=== PATIENT | female | born 1955 | race Caucasian/White ===

== ENCOUNTER 2016-10-03 05:36 | Inpatient (IN) | payer OTHER ==
[2016-09-21 15:24] LABS: % IMMATURE GRANULYOCYTES 0.3 % (0.0-1.1); ABSOLUTE IMMATURE GRANULOCYTES 0.03 10^3/uL (0.00-0.10); ADD DIFF? NO; ADD MORPH? NO; ADD SCAN? NO; ATYPICAL LYMPHOCYTE FLAG 0 (0-99); FRAGMENT RBC FLAG 0 (0-99); HEMATOCRIT 45.2 % (38.0-47.0); HEMOGLOBIN 15.4 g/dL (12.6-16.3); LEFT SHIFT FLG 0 (0-99); LIPEMIA HEMOLYSIS FLAG 90 (0-99); MEAN CELL HEMOGLOBIN 29.3 pg (27.9-34.1); MEAN CELL HEMOGLOBIN CONCENTR. 34.1 g/dL (32.4-36.7); MEAN CELL VOLUME 86.1 fL (81.5-99.8); MEAN PLATELET VOLUME 11.2 fL (8.7-11.7); PLATELET CLUMPS FLAG 0 (0-99); PLATELET COUNT 252 10^3/uL (150-400); RED BLOOD CELL COUNT 5.25 10^6/uL (4.18-5.33); RED CELL DISTRIBUTION WIDTH 12.5 % (11.5-15.2)
--- NOTE | 2016-09-22 08:30 | CPEKG ---
Heart Rate: 68 RR Interval: 882 P-R Interval: 164 QRSD Interval: 90 QT Interval: 428 QTC Interval: 456 P [place]: 38 QRS [place]: 25 T Wave [place]: 39 EKG Severity - NORMAL ECG - EKG Impression: SINUS RHYTHM Electronically Signed By: Zander Campa 22-Sep-2016 09:05:40
[2016-10-03] MEDS ORDERED: LIDOCAINE 1% 2 ML INJ ONE (05:52)
[2016-10-03] MEDS ORDERED: THROMBIN (RECOMBINANT) 5,000 UNIT VIAL TP ONE (06:38)
[2016-10-03] MEDS ORDERED: BUPIVACAINE 0.25% 30 ML SDV ONE (06:39)
[2016-10-03] MEDS ORDERED: BACITRACIN 50,000 UNITS/10 ML SYR IRR ONE (06:39)
[2016-10-03] MEDS ORDERED: BUPIVACAINE/EPI 0.25% 30 ML SDV ONE ×2 (06:39→06:59)
[2016-10-03] MEDS ORDERED: morphINE PF 5 MG/10 ML INJ IT ONE (07:00)
[2016-10-03] MEDS ORDERED: ceFAZolin 2 GM/DEXTROSE 100 ML IV ONE (07:00)
[2016-10-03] MEDS ORDERED: fentaNYL 100 MCG/2 ML INJ IT ONE (07:00)
[2016-10-03] MEDS ORDERED: MIDAZOLAM 2 MG/2 ML VIAL ONE (07:08)
[2016-10-03] MEDS ORDERED: HYDROmorphONE/DILAUDID 2 MG/ML INJ ONE (07:25)
[2016-10-03] MEDS ORDERED: PROPOFOL 200 MG/20 ML VIAL ONE ×2 (07:26→07:53)
[2016-10-03] MEDS ORDERED: KETAMINE 100 MG/10 ML SYR IVP ONE (07:26)
[2016-10-03] MEDS ORDERED: DEXAMETHASONE 4 MG/ML VIAL ONE ×2 (07:29)
[2016-10-03] MEDS ORDERED: ONDANSETRON 4 MG/2 ML VIAL ONE (07:29)
[2016-10-03] MEDS ORDERED: DEXMEDETOMIDINE HCL 400 MCG in NS 100 ML IV SCH (07:30)
[2016-10-03] MEDS ORDERED: GLYCOPYRROLATE 0.2 MG/1 ML VIAL ONE (08:16)
[2016-10-03] MEDS ORDERED: PHENYLEPHRINE HCL 100 MCG/ML SYR ONE (08:19)
[2016-10-03] MEDS ORDERED: morphINE PF 5 MG/10 ML INJ ONE (08:59)
[2016-10-03] MEDS ORDERED: fentaNYL 100 MCG/2 ML INJ ONE (08:59)
[2016-10-03] MEDS ORDERED: SUGAMMADEX SODIUM 200 MG/2 ML VIAL IVP ONE (09:47)
[2016-10-03] MEDS ORDERED: ceFAZolin 1 GM VIAL ONE (10:03)
[2016-10-03] MEDS ORDERED: ALBUTEROL 60 PUFFS/8 GM MDI IH PRN (10:16)
[2016-10-03] MEDS ORDERED: PYRIDOSTIGMINE BROMIDE 60 MG TAB PO PRN (10:16)
[2016-10-03] MEDS ORDERED: ONDANSETRON 4 MG/2 ML VIAL IVP PRN (10:17)
[2016-10-03] MEDS ORDERED: MAGNESIUM HYDROXIDE 30 ML UDCUP PO PRN (10:17)
[2016-10-03] MEDS ORDERED: HYDROmorphONE/DILAUDID 6 MG/30 ML PCA IV PRN (10:17)
[2016-10-03] MEDS ORDERED: NALOXONE HCL 0.4 MG/ML INJ IVP PRN (10:17)
[2016-10-03] MEDS ORDERED: BISACODYL 10 MG SUPP PR PRN (10:17)
[2016-10-03] MEDS ORDERED: ONDANSETRON DISINTEGRATING 4 MG TAB PO PRN (10:17)
[2016-10-03] MEDS ORDERED: LACTULOSE 20 GM/30 ML UDCUP PO PRN (10:17)
[2016-10-03] MEDS ORDERED: METHOCARBAMOL 750 MG TAB PO PRN (10:17)
[2016-10-03] MEDS ORDERED: DIAZEPAM 10 MG/2 ML SYR IVP PRN (10:17)
[2016-10-03] MEDS ORDERED: DIAZEPAM 5 MG TAB PO PRN (10:17)
[2016-10-03] MEDS ORDERED: diphenhydrAMINE 25 MG CAP PO PRN (10:17)
--- NOTE | 2016-10-03 10:22 | POSTOPPROG ---
Post Op Note Date of Operation: 10/03/16 Surgeon: Pepe Martin [employer] Business Agent: Jhonny Anesthesiologist: Deedee Anesthesia: GET(General Endotracheal) Pre-op Diagnosis: L4/5 spondylolisthesis/stenosis Post-op Diagnosis: same Indication: low back pain, left leg pain Procedure: L4/5 TLIF Findings: DJD/stenosis Inf/Abcess present in the surg proc area at time of surgery?: No EBL: 100-500 Complications: 100 ml Drains: Ramos Waggoner
--- NOTE | 2016-10-03 10:24 | SOAPPROG ---
SOAP Progress Note Assessment/Plan: Assessment: 61 yo F sp L4/5 TLIF Plan: stable to step down overnight since patient has Myasthenia Gravis PT/OT x-rays in am lovenox starts tomorrow please call with neuro changes 10/03/16 10:22 Subjective: + back pain, no leg pain. Objective: Laboratory Results 09/21/16 15:17 awake, alert PERRL, no facial droop MATEO x 4 + light touch ICD10 Worksheet Patient Problems: Problems Problem Status Onset Fusion of lumbar spine Acute Pneumonia Acute Sciatica Acute Myasthenia gravis Chronic - ICD10 Problem Qualifiers (1) Fusion of lumbar spine
[2016-10-03] MEDS ORDERED: NS W/ 20 KCl/L 1,000 ML IV SCH (10:30)
[2016-10-03] MEDS ORDERED: ERGOCALCIFEROL 50,000 I.UNIT CAP PO SCH (10:30)
[2016-10-03] MEDS ORDERED: ALBUTEROL 3 ML DEYVIAL ONE (11:05)
--- NOTE | 2016-10-03 11:24 | GOP ---
[f rep st] OPERATIVE REPORT DATE OF OPERATION: 10/03/2016 SURGEON: Pepe Martin MD [employer] TEAMMATE: ANDREW Mark ANESTHESIA: General endotracheal. PREOPERATIVE DIAGNOSIS: Severe L4-5 degenerative disk disease with large left L4-5 facet cyst and s evere neuroforaminal and lateral recess impingement. Intractable back and leg pain. Failed conserv ative care. Morbid obesity. High-risk surgical candidate given age, comorbidities including myasth enia gravis and obesity, and required surgical intervention. POSTOPERATIVE DIAGNOSIS: Severe L4-5 degenerative disk disease with large left L4-5 facet cyst and severe neuroforaminal and lateral recess impingement. Intractable back and leg pain. Failed conser vative care. Morbid obesity. High-risk surgical candidate given age, comorbidities including myast henia gravis and obesity, and required surgical intervention. PROCEDURE PERFORMED: Left-sided L4-5 far lateral transpedicular decompression with L4-5 posterior n onsegmental (pedicle screw and axle device) fixation and posterolateral fusion with local autograft and bone morphogenic protein. L4-5 posterior/transforaminal lumbar interbody fusion with 2 structur al PEEK interbody spacers, local autograft, and bone morphogenic protein. Use of intraoperative patel roscopy, fluoroscopy, and computer volumetric stereotactic navigation with intraoperative neurophysi ologic testing. Injection of intrathecal narcotic analgesics and subcutaneous and intramuscular loc al anesthesia for postoperative pain control. FINDINGS: ESTIMATED BLOOD LOSS: 75 cc. INDICATIONS: The patient is a 61-year-old woman who presents with intractable low back pain and lef t lower extremity radicular symptoms secondary to severe disk degeneration and facet hypertrophy and decompensation, with a large left L4-5 facet cyst causing severe central canal and neural foraminal and lateral recess impingement. She has failed extensive conservative care and presents now for eli rgical intervention. She understands the high risk of complications given her obesity and myastheni a gravis, especially respiratory depression. I have discussed this at length with Dr. Bruce Pak t he head of the anesthesia department here, and the patient's neurologist, and they have put a plan i n place preoperatively. DESCRIPTION OF PROCEDURE: After informed consent was obtained, patient was taken to the operating r oom and placed in prone position on the Ramos table. The lumbosacral area was prepped and draped in a sterile fashion after fluoroscopic localization of the correct level. The subcutaneous and int ramuscular tissues were infiltrated with local anesthesia. A midline linear incision was then creat ed over the L4-5 spinous processes. This was carried down to the fascial layer, which was incised u sing monopolar electrocautery and carried in the subfascial plane along the spinous process and lami na bilaterally. Note that the exposure took approximately 2-3 times as long as normal given the pat ient's obesity and the depth of the wound. There was also increased blood loss. The large 80 mm re tractors were placed and after careful dissection bipolar fluoroscopy was utilized to verify the cor rect level. Following this, a left-sided L4-5 far lateral transpedicular decompression was performe d. Note that there was an extreme amount of facet hypertrophy and degeneration, and this part of th e procedure also took much longer than normal as well. There was also a large facet cyst. It was e xtremely adherent to the dura, which required meticulous dissection under high-power microscopy to r emove it. I was able to thoroughly decompress both the L4 and L5 nerve roots and expose the disk. The [employer] neuronavigational system was then brought in, and using computer volumetric stereotactic navigation, pedicle screws were placed at L4 and L5 bilaterally. Each individual screw was tested neurophysiologically with monopolar electrostimulation and interpretation of the potentials by the renetta lawson. They were also inspected under high-power microscopy and the L5 pedicle cracked upon placin g the screw. I felt that it was in the patient's best interest to leave it in place because it was still relatively solid, but also to place an axial device for further fixation, especially given her obesity and the stress that caused on these screws and the system as a whole. A small amount of di straction was then created across the interspace and a complete diskectomy was performed under high- power microscopy, along with preparation of the endplates and placement of two 10 mm structural PEEK interbody spacers, local autograft, and bone morphogenic protein for an L4-5 posterior/transforamin al lumbar interbody fusion. The screw and jm system were then placed in a slight amount of sunny mely in order to facilitate bony union and to minimize the potential for posterior graft migration. Following this, the remaining facet joint and lamina on the right were extensively decorticated, an d the residual local autograft along with bone morphogenic protein was placed out laterally for post erolateral fusion at the L4-5 level. 200 mcg of Duramorph, along with 50 mcg of fentanyl were injec cody intrathecally for postoperative pain control. The subcutaneous and intramuscular tissues were r e-infiltrated with local anesthesia. A drain was placed and the wound was closed in a layered fashi on using interrupted Vicryl sutures followed by Steri-Strips on the skin. COMPLICATIONS: None. DISPOSITION: The patient is currently in the process of being repositioned for extubation. /[id number]/MODL
--- NOTE | 2016-10-03 13:39 | GCON ---
[f rep st] CONSULTATION DIRECTOR OF SPEECH PATHOLOGY CONSULTATION REASON FOR ADMISSION: Status post back surgery. The patient is a very pleasant 61-year-old white female, well-known to myself, with a past medical h istory of myasthenia gravis as well as asthma. She is examined postoperatively, after receiving a L 4-L5 TLIF. Again, she has a long-standing history of myasthenia gravis, and has had no problems wit h this recently. Her asthma has been well controlled on Dulera. Currently, she is resting comforta klaus. The pain is well tolerated. She denies any breathlessness. There is no cough or production o f sputum. No fever, no night sweats. PAST MEDICAL HISTORY: Again, significant for asthma, myasthenia gravis, chronic back pain, obesity. PAST SURGICAL HISTORY: She has had a tonsillectomy, knee surgery, and hysterectomy. ALLERGIES: Acetaminophen. SOCIAL HISTORY: Lifelong never smoker. No significant alcohol use. She has a significant other, h as good family support. PHYSICAL EXAMINATION: VITAL SIGNS: Blood pressure is 119/59, pulse is 69, respirations are 12, tem perature 36.7, oxygen saturation 93% on 10 L. GENERAL: She is a mildly overweight, but very pleasa nt 61-year-old white female who is resting comfortably in no acute distress. HEENT: Eyes are DANETTE, EOMI. Throat shows no erythema or tonsillar hypertrophy. NECK: Supple. No cervical adenopathy. HEART: Regular rate and rhythm with a 2/6 systolic murmur at the left sternal border without radia tion. LUNGS: Diminished breath sounds, but no wheeze. ABDOMEN: Soft, nontender. Bowel sounds ar e present in all 4 quadrants. EXTREMITIES: No clubbing, cyanosis or edema. LABORATORY DATA: White count 9.7, hemoglobin 15, hematocrit 45, platelet count 252. IMPRESSION: 1. Status post L4-5 transforaminal lumbar interbody fusion. 2. Myasthenia gravis, stable. 3. Asthma, stable. 4. Obesity. RECOMMENDATIONS: 1. Agree with current pain management. 2. DVT and PE prophylaxis. 3. Stress ulcer prophylaxis. 4. Will restart patient's home Dulera. 5. Anticipate discharge home soon. Thank you very much. /[id number]/MODL
[2016-10-03] MEDS: BUDESONIDE/FORMOTEROL 80/4.5 60 PUFFS/MDI IH SCH ×2 (14:29→20:31)
[2016-10-03] MEDS: POLYETHYLENE GLYCOL 3350 17 GM PKT PO SCH ×2 (17:32→20:29)
[2016-10-03] MEDS: GABAPENTIN 300 MG CAP PO SCH ×2 (17:32→20:28)
[2016-10-03] MEDS: HYDROmorphONE/DILAUDID 1 MG/ML SYR IVP PRN (19:10)
[2016-10-03] MEDS: morphINE SR 15 MG TAB PO SCH (20:28)
[2016-10-03] MEDS: SENNOSIDES/DOCUSATE SODIUM TAB PO SCH (20:29)
[2016-10-03] MEDS: FAMOTIDINE 20 MG/NACL 50 ML IV SCH (20:29)
[2016-10-04 05:04] LABS: % IMMATURE GRANULYOCYTES 0.3 % (0.0-1.1); ABSOLUTE IMMATURE GRANULOCYTES 0.03 10^3/uL (0.00-0.10); ADD DIFF? NO; ADD MORPH? NO; ADD SCAN? NO; ATYPICAL LYMPHOCYTE FLAG 0 (0-99); FRAGMENT RBC FLAG 0 (0-99); HEMATOCRIT 40.2 % (38.0-47.0); HEMOGLOBIN 13.5 g/dL (12.6-16.3); LEFT SHIFT FLG 0 (0-99); LIPEMIA HEMOLYSIS FLAG 80 (0-99); MEAN CELL HEMOGLOBIN 29.4 pg (27.9-34.1); MEAN CELL HEMOGLOBIN CONCENTR. 33.6 g/dL (32.4-36.7); MEAN CELL VOLUME 87.6 fL (81.5-99.8); MEAN PLATELET VOLUME 11.4 fL (8.7-11.7); PLATELET CLUMPS FLAG 10 (0-99); PLATELET COUNT 223 10^3/uL (150-400); RED BLOOD CELL COUNT 4.59 10^6/uL (4.18-5.33); RED CELL DISTRIBUTION WIDTH 12.7 % (11.5-15.2)
[2016-10-04] MEDS: oxyCODONE IR 5 MG TAB PO PRN ×3 (05:05→16:41)
[2016-10-04 05:37] LABS: ANION GAP 9 mEq/L (8-16); CALCIUM 9.5 mg/dL (8.5-10.4); CARBON DIOXIDE 25 mEq/l (22-31); CHLORIDE 104 mEq/L (97-110); CREATININE 0.7 mg/dL (0.6-1.0); GLOMERULAR FILTRATION RATE > 60; GLUCOSE 138 mg/dL (70-100); POTASSIUM 4.7 mEq/L (3.5-5.2); SODIUM 138 mEq/L (134-144)
--- NOTE | 2016-10-04 07:20 | SOAPPROG ---
SOAP Progress Note Assessment/Plan: Assessment: 61 yo female with myesthenia gravis, POD #1 s/p L4/5 TLIF notes left leg pain to be improved pain well controlled Plan: DC dai LSO when out of bed once it arrives AP/Lat xrays Lspine today to evaluate hardware PT/OT Transfer to floor 10/04/16 07:17 Subjective: lying in bed, comfortable. She reports resolution of the "shooting pain" down her left leg Denies new numbness, tingling or weakness Objective: Vital Signs Temp Pulse Resp BP Pulse Ox 37.1 C 70 10 L 116/59 L 95 10/04/16 04:00 10/04/16 04:00 10/04/16 04:00 10/04/16 04:00 10/04/16 04:00 Laboratory Results 10/04/16 04:54 10/04/16 04:54 10/03/16 10/04/16 10/05/16 05:59 05:59 05:59 Intake Total 0 Output Total 430 Balance 1620 Dressing: CDI KIM: 30 ml Neuro: KELLY to command sens +LT 5/5 DF/PF/EHL ICD10 Worksheet Patient Problems: Problems Problem Status Onset Fusion of lumbar spine Acute Pneumonia Acute Sciatica Acute Myasthenia gravis Chronic
[2016-10-04] MEDS: ENOXAPARIN 40 MG/0.4 ML SYR SC SCH (08:04)
[2016-10-04] MEDS: SENNOSIDES/DOCUSATE SODIUM TAB PO SCH ×2 (08:04→21:00)
[2016-10-04] MEDS: FAMOTIDINE 20 MG/NACL 50 ML IV SCH (08:04)
[2016-10-04] MEDS: PYRIDOSTIGMINE BROMIDE 60 MG TAB PO PRN ×2 (08:04→12:27)
[2016-10-04] MEDS: POLYETHYLENE GLYCOL 3350 17 GM PKT PO SCH ×3 (08:04→21:05)
[2016-10-04] MEDS: SERTRALINE HCL 100 MG TAB PO SCH (08:05)
[2016-10-04] MEDS: GABAPENTIN 300 MG CAP PO SCH ×3 (08:05→21:01)
[2016-10-04] MEDS: PANTOPRAZOLE SODIUM 40 MG TAB PO SCH (08:05)
[2016-10-04] MEDS: azaTHIOprine 50 MG TAB PO SCH (08:05)
[2016-10-04] MEDS: morphINE SR 15 MG TAB PO SCH ×2 (08:05→21:01)
[2016-10-04] MEDS ORDERED: FORMOTEROL IH SCH ×2 (09:00)
[2016-10-04] MEDS ORDERED: MOMETASONE IH SCH ×2 (09:00)
[2016-10-04] MEDS: BUDESONIDE/FORMOTEROL 80/4.5 60 PUFFS/MDI IH SCH ×2 (09:40→20:28)
[2016-10-04] MEDS: HYDROmorphONE/DILAUDID 1 MG/ML SYR IVP PRN (16:41)
--- NOTE | 2016-10-05 07:30 | SOAPPROG ---
SOAP Progress Note Assessment/Plan: Assessment: 61 yo female with myesthenia gravis, POD #2 s/p L4/5 TLIF notes left leg pain to be improved pain well controlled Plan: LSO when out of bed once it arrives AP/Lat xrays Lspine today to evaluate hardware PT/OT DC planning Patient was seen by Dr. Martin this AM Subjective: awake, alert, pain well controlled Objective: Vital Signs Temp Pulse Resp BP Pulse Ox 37.3 C 87 16 135/73 H 90 L 10/05/16 01:14 10/05/16 01:14 10/05/16 01:14 10/05/16 01:14 10/05/16 01:14 Laboratory Results 10/04/16 04:54 10/04/16 04:54 10/04/16 10/05/16 10/06/16 05:59 05:59 05:59 Intake Total 2050 1230 Output Total 430 35 Balance 1620 1195 Lumbar xrays: Stable hardware L4/5 Neuro: KELLY, Sens +LT KIM: 35 ml ICD10 Worksheet Patient Problems: Problems Problem Status Onset Fusion of lumbar spine Acute Pneumonia Acute Sciatica Acute Myasthenia gravis Chronic
[2016-10-05] MEDS: HYDROmorphONE/DILAUDID 1 MG/ML SYR IVP PRN (08:29)
[2016-10-05] MEDS: BUDESONIDE/FORMOTEROL 80/4.5 60 PUFFS/MDI IH SCH ×2 (09:37→22:08)
[2016-10-05] MEDS: azaTHIOprine 50 MG TAB PO SCH (10:49)
[2016-10-05] MEDS: SERTRALINE HCL 100 MG TAB PO SCH (10:49)
[2016-10-05] MEDS: ENOXAPARIN 40 MG/0.4 ML SYR SC SCH (10:49)
[2016-10-05] MEDS: morphINE SR 15 MG TAB PO SCH ×2 (10:49→22:09)
[2016-10-05] MEDS: SENNOSIDES/DOCUSATE SODIUM TAB PO SCH ×2 (10:50→22:09)
[2016-10-05] MEDS: PANTOPRAZOLE SODIUM 40 MG TAB PO SCH (10:50)
[2016-10-05] MEDS: POLYETHYLENE GLYCOL 3350 17 GM PKT PO SCH ×3 (10:50→22:09)
[2016-10-05] MEDS: GABAPENTIN 300 MG CAP PO SCH ×3 (10:50→22:09)
[2016-10-05] MEDS ORDERED: NS 1,000 ML IV ONE (11:22)
--- NOTE | 2016-10-05 11:50 | CPEKG ---
Heart Rate: 165 RR Interval: 364 QRSD Interval: 78 QT Interval: 280 QTC Interval: 464 QRS [place]: 28 T Wave [place]: 7 EKG Severity - ABNORMAL ECG - EKG Impression: ATRIAL FIBRILLATION WITH RAPID V-RATE EKG Impression: ATRIAL FIBRILLATION IS NEW IN COMPARISON TO PRIOR ECG Electronically Signed By: Zander Campa 05-Oct-2016 12:08:28
[2016-10-05 12:15] LABS: ANION GAP 8 mEq/L (8-16); CARBON DIOXIDE 28 mEq/l (22-31); CHLORIDE 102 mEq/L (97-110); CREATININE 0.7 mg/dL (0.6-1.0); GLOMERULAR FILTRATION RATE > 60; GLUCOSE 192 mg/dL (70-100); POTASSIUM 4.7 mEq/L (3.5-5.2); SODIUM 138 mEq/L (134-144)
[2016-10-05 12:24] LABS: HEMATOCRIT 40.1 % (38.0-47.0); HEMOGLOBIN 13.3 g/dL (12.6-16.3); MEAN CELL HEMOGLOBIN CONCENTR. 33.2 g/dL (32.4-36.7); MEAN CELL VOLUME 87.4 fL (81.5-99.8); RED BLOOD CELL COUNT 4.59 10^6/uL (4.18-5.33); RED CELL DISTRIBUTION WIDTH 12.7 % (11.5-15.2)
[2016-10-05] MEDS ORDERED: DILTIAZEM 125 MG in D5W 125 ML IV SCH (12:30)
[2016-10-05] MEDS ORDERED: IOPAMIDOL (ISOVUE 370) 100 ML BTL IV ONE ×2 (14:48→17:12)
[2016-10-05] MEDS ORDERED: ALTEPLASE 2 MG VIAL IVP PRN (15:50)
[2016-10-05] MEDS: oxyCODONE IR 5 MG TAB PO PRN (16:32)
--- NOTE | 2016-10-05 17:27 | GCON ---
[f rep st] CONSULTATION REFERRING PHYSICIAN: Dr. Martin CONSULTING QUESTION: Tachycardia. HISTORY OF PRESENT ILLNESS: A 61-year-old female with a history of myasthenia gravis and asthma, wh o presents on 10/03/2016 for elective L4-5 decompression. The patient is postoperative day 2. [facility] Medicine was consulted as the patient developed new tachycardia with heart rates in the 150s to 160s. The patient has an uncomplicated first 24 hours of her postoperative care. Bedside, she is not complaining of chest pain or discernible shortness of breath. She can feel the palpitations and does not report having felt these previously. Denies any pleuritic chest pain. Reports that her o ral intake has been less than usual, but her symptoms of myasthenia are stable compared to her outpa tient presentation. The patient denies any nausea, vomiting. Does report poorly controlled pain. Denies any new lower extremity edema or new numbness or tingling. PAST MEDICAL HISTORY: 1. Myasthenia gravis. 2. Asthma. SOCIAL HISTORY: Negative for tobacco, alcohol, or illicit drugs. FAMILY HISTORY: Negative for cardiac disease. REVIEW OF SYSTEMS: A 10-point review of systems is negative with the exception of that reported in the HPI. PHYSICAL EXAMINATION: VITAL SIGNS: Blood pressure is 141/109, heart rate 151, respiratory rate 16, 93% on 2.5 L, 37.6. GENERAL: This is a healthy-appearing, middle-aged female, in no acute distres s. HEENT: Notable for moist mucous membranes. Eye exam is negative for any icterus. CARDIAC: Pa jose is tachycardic. PULMONARY: Clear to auscultation bilaterally. GASTROINTESTINAL: The patien t is obese, has positive bowel sounds. ABDOMEN: Soft and nontender in all 4 quadrants. MUSCULOSKE LETAL: Negative for any lower extremity edema. SKIN: Negative for any rashes. NEUROLOGIC: She i s alert and oriented x3. PSYCHIATRIC: She is pleasant and cooperative on interview and examination . DATA: White count is 9.2, last checked. Creatinine 0.7. Last EKG 2013, which I personally reviewe d and interpreted, showed sinus rhythm, normal axis, normal intervals. ASSESSMENT AND PLAN: This is a 61-year-old female, status post L4-5 decompression, postoperative da y 2, with new tachycardia. 1. Acute tachycardia: Telemetry, which I personally reviewed and interpreted, looks regular. Phillip bud, pulse feels irregular. Will check a stat EKG to better appreciate the rhythm. Check stat labs including D-dimers. The patient is certainly at risk for pulmonary embolism even though her clinic al symptoms are lower risk. We will review the patient's medication list, verify there are no medic ations or supplements she is either having a side effect from or withdrawal syndrome from. We will bolus a liter of normal saline now, rule out any underlying hypovolemia. 2. Myasthenia gravis: The patient's clinical presentation appears stable. We will continue her ho wy medications. 3. Prophylaxis: Patient is on Lovenox. 4. Diet: Regular. 5. Disposition: I expect greater than 2 midnights as patient is early in her postoperative recover y with a new medical finding. I have discussed the case with the RN. If the patient's tachycardia remains consistent, will consid er transferring to a floor where she can have closer cardiac monitoring. /[id number]/MODL
--- NOTE | 2016-10-06 07:51 | SOAPPROG ---
SOAP Progress Note Assessment/Plan: Assessment: 61 yo F sp L4/5 TLIF Plan: stable afib per cardiology and IM PT/OT x-rays look great scd/cody/lovenox for dvt prophylaxis please call with neuro changes discussed with DR Mcconnell 10/03/16 10:22 10/06/16 15:25 Subjective: continued back pain, no leg pain, no weakness. Objective: Vital Signs Temp Pulse Resp BP Pulse Ox 36.7 C 79 14 125/76 H 94 10/06/16 07:28 10/06/16 07:28 10/06/16 07:28 10/06/16 07:28 10/06/16 07:28 Laboratory Results 10/05/16 12:15 10/05/16 11:19 10/05/16 10/06/16 10/07/16 05:59 05:59 05:59 Intake Total 1230 555 Output Total 35 1050 Balance 1195 -495 ICD10 Worksheet Patient Problems: Problems Problem Status Onset Fusion of lumbar spine Acute Pneumonia Acute Sciatica Acute Myasthenia gravis Chronic - ICD10 Problem Qualifiers (1) Fusion of lumbar spine
[2016-10-06] MEDS: SENNOSIDES/DOCUSATE SODIUM TAB PO SCH ×2 (08:13→20:24)
[2016-10-06] MEDS: SERTRALINE HCL 100 MG TAB PO SCH (08:14)
[2016-10-06] MEDS: POLYETHYLENE GLYCOL 3350 17 GM PKT PO SCH ×3 (08:14→21:21)
[2016-10-06] MEDS: ENOXAPARIN 40 MG/0.4 ML SYR SC SCH (08:14)
[2016-10-06] MEDS: azaTHIOprine 50 MG TAB PO SCH (08:14)
[2016-10-06] MEDS: GABAPENTIN 300 MG CAP PO SCH ×3 (08:14→21:20)
[2016-10-06] MEDS: morphINE SR 15 MG TAB PO SCH ×2 (08:14→20:23)
[2016-10-06] MEDS: PANTOPRAZOLE SODIUM 40 MG TAB PO SCH (08:15)
[2016-10-06] MEDS: BUDESONIDE/FORMOTEROL 80/4.5 60 PUFFS/MDI IH SCH ×2 (08:51→22:08)
[2016-10-06] MEDS: DILTIAZEM 30 MG TAB PO SCH ×3 (10:23→19:07)
[2016-10-06] MEDS: HYDROmorphONE/DILAUDID 1 MG/ML SYR IVP PRN ×2 (10:25→16:19)
--- NOTE | 2016-10-06 15:19 | ECHO ---
[id number] + + [address] : : [place] [address] : : [phone] + + Adult Echocardiographic Report + + :Name: SHIRA KOTHARI KRYSTYNA Rose Date: 10/06/2016 02:07 PM : : Hospital Admission Number: [id number] Lo cation: 201: :: 1955 Gender: Female Height: 66 in : :Age: 61 yrs Race: Weight: 25 5 lb : :Reason For Study: New atrial fibrillation : : BSA: 2.2 m eters2 : + + MMode/2D Measurements \T\ Calculations IVSd: 0.82 cm LVIDd: 4.9 cm FS: 46.4 % Ao root diam: 3.4 cm LVPWd: 1.0 cm LVIDs: 2.6 cm EDV(Teich): 111.2 ml LA dimension: 3.4 cm ESV(Teich): 24.8 ml EF(Teich): 77.7 % Normal Measurement Values: + + :LVIDd (3.5-5.7cm) IVSd (0.6-1.1cm) LVPWd (0.6-1.1cm) Aortic Root (2.0-3.7cm)Left Atrium (1.5-4.0cm): :LV Vol(d) (76-115ml) LV Vol(s) (29-48ml) Ejec Fraction (50-65%)PV Héctor (0.6- 1.2m/s) TV Héctor (0.4-1.0m/s) : :MV E Héctor (0.8-1.0m/s)MV A Héctor (0.3-1.0m/s)LVOT Héctor (0.7-1.2m/s) Asc Ao Héctor ( 0.9-1.8m/s) : + + Doppler Measurements \T\ Calculations MV E max héctor: 82.4 cm/sec Ao mean P.9 mmHg MV A max héctor: 75.5 cm/sec Ao V2 mean: 94.6 cm/sec MV E/A: 1.1 Ao V2 VTI: 27.0 cm Left Ventricle The left ventricle is normal in size. There is normal left ventricular wall thickness. Left ventricular systolic function is normal. Ejection Fraction = 60-65%. No regional wall motion abnormalities noted. Right Ventricle The right ventricle is normal in size and function. Atria The left atrial size is normal. Right atrial size is normal. The interatrial septum is intact with no evidence for an atrial septal defect. Mitral Valve The mitral valve is normal in structure and function. There is no evidence of mitral valve prolapse. There is no mitral valve stenosis. There is trace mitral regurgitation. Tricuspid Valve Normal tricuspid valve. There is trace tricuspid regurgitation. Aortic Valve The aortic valve is trileaflet. The aortic valve opens well. There is no aortic stenosis. There is no aortic insufficiency. Pulmonic Valve The pulmonic valve is normal in structure and function. There is no pulmonic valvular regurgitation. Great Vessels The aortic root is normal size. Pericardium/Pleural There is no pericardial effusion. There is a fat pad seen. Conclusion A complete two-dimensional transthoracic echocardiogram was performed (2D, M-mode, Doppler and color flow Doppler). Left ventricular systolic function is normal. Ejection Fraction = 60-65%. There is trace mitral regurgitation. There is trace tricuspid regurgitation. Final Reading Physician: Rodrick Salazar signed on 10/06/2016 03:18 PM Ordering Physician: Janiya Wilde Performed By: Manda Quinteros, [facility]
--- NOTE | 2016-10-06 15:59 | HOSPPROG ---
Hospitalist Progress Note Assessment/Plan: This is a 61-year-old female, status post L4-5 decompression, postoperative day 2, with new tachycardia. # acute atrial fibrillation with rapid ventricular response- patient developed heart rates in the 160s to 170s yesterday afternoon- without complaint- creatinine normal oxygen saturation 97% on [address] PE (personally reviewed and interpreted) negative for pulmonary embolism - received IV fluid bolus - was transferred to PCU for diltiazem drip and converted to sinus overnight - initiate low-dose p.o. diltiazem this morning - initiate aspirin - continue telemetry monitoring overnight - transthoracic echocardiogram pending # Myasthenia gravis- patient describing limited activity at home- recommended that she follow with Neurology in the outpatient setting to further discuss her use of her MG medications # Prophylaxis: Patient is on Lovenox. # status post L4-L5 surgery- postop day 3 - management per primary team # Diet: Regular. # Disposition: I expect greater than 2 midnights as patient is early in her postoperative recovery with a new medical finding. I have discussed the case with the RN - we will initiate diltiazem orally today and follow on TELE closely Subjective: denies chest pain Objective: Vital Signs Temp Pulse Resp BP Pulse Ox 36.7 C 75 16 148/81 H 97 10/06/16 11:47 10/06/16 11:47 10/06/16 11:47 10/06/16 11:47 10/06/16 11:47 Laboratory Results 10/05/16 12:15 10/05/16 11:19 10/05/16 10/06/16 10/07/16 05:59 05:59 05:59 Intake Total 1230 555 Output Total 35 1050 Balance 1195 -495 - Physical Exam Constitutional: chronically ill appearing, obese Eyes: anicteric sclera Ears, Nose, Mouth, Throat: moist mucous membranes Cardiovascular: regular rate and rhythym, systolic murmur Respiratory: no respiratory distress, no rales or rhonchi Gastrointestinal: normoactive bowel sounds, soft, non-tender abdomen Genitourinary: no bladder fullness Skin: warm, normal color Musculoskeletal: No asymmetric calves Neurologic: AAOx3 Psychiatric: interacting appropriately, not anxious Lymph, Heme, Immunologic: no cervical LAD ICD10 Worksheet Patient Problems: Problems Problem Status Onset Fusion of lumbar spine Acute Pneumonia Acute Sciatica Acute Myasthenia gravis Chronic
[2016-10-06] MEDS: ASPIRIN 81 MG CHEWABLE TAB PO SCH (16:19)
[2016-10-06] MEDS: oxyCODONE IR 5 MG TAB PO PRN (22:44)
[2016-10-07] MEDS: DILTIAZEM 30 MG TAB PO SCH ×3 (00:15→13:16)
[2016-10-07] MEDS: ENOXAPARIN 40 MG/0.4 ML SYR SC SCH (08:17)
[2016-10-07] MEDS: GABAPENTIN 300 MG CAP PO SCH ×3 (08:22→20:12)
[2016-10-07] MEDS: POLYETHYLENE GLYCOL 3350 17 GM PKT PO SCH ×3 (08:22→20:12)
[2016-10-07] MEDS: SERTRALINE HCL 100 MG TAB PO SCH (08:23)
[2016-10-07] MEDS: PANTOPRAZOLE SODIUM 40 MG TAB PO SCH (08:23)
[2016-10-07] MEDS: SENNOSIDES/DOCUSATE SODIUM TAB PO SCH ×2 (08:23→20:12)
[2016-10-07] MEDS: morphINE SR 15 MG TAB PO SCH ×2 (08:24→20:12)
[2016-10-07] MEDS: azaTHIOprine 50 MG TAB PO SCH (08:24)
[2016-10-07] MEDS: ASPIRIN 81 MG CHEWABLE TAB PO SCH (08:24)
[2016-10-07] MEDS: BUDESONIDE/FORMOTEROL 80/4.5 60 PUFFS/MDI IH SCH ×2 (08:33→20:47)
--- NOTE | 2016-10-07 08:43 | NEUSURGPN ---
Assessment/Plan: Assessment: 61 yo F sp L4/5 TLIF Plan: stable afib per cardiology and IM, appreciate assistance in the care of this patient PT/OT x-rays look great scd/cody/lovenox for dvt prophylaxis please call with neuro changes DC to rehab once cleared by cardio/IM discussed with DR Mcconnell Subjective: Pt resting in bed, doing ok. States she was quite debilitated pre op and legs still feel weak. Objective: AAOx3 NAD VSS MAEx4 Motor 5/5 BLE Incision cdi steri strips in place +LT Urinary Catheter in Place: No - Physician Discussed Patient with Dr.: Mario Neurosurgery Physical Exam - Vitals, I&O, Labs I and O 10/06/16 10/07/16 10/08/16 05:59 05:59 05:59 Intake Total 555 1060 Output Total 1050 3 Balance -495 1057 Intake: Oral (ml) 520 1040 IV Intake (ml) 20 IV Infused (ml) 35 Diltiazem 125 mg In D5w 35 125 ml @ Per Protocol IV CONT [place] Rx#:[id number] Output: Urine (ml) 1000 3 Toilet 1000 3 Emesis (ml) 40 Wound Drainage (ml) 10 Posterior Back Ramos 10 Waggoner Other: Number of Voids Incontinence 1 Toilet 1 1 Number of Emesis 1 Occurrences Vital Signs Temp Pulse Resp BP Pulse Ox 36.8 C 94 15 143/95 H 91 L 10/07/16 07:07 10/07/16 07:07 10/07/16 07:07 10/07/16 07:07 10/07/16 07:07 Laboratory Results 10/05/16 12:15 10/05/16 11:19 ICD10 Worksheet Patient Problems: Problems Problem Status Onset Fusion of lumbar spine Acute Pneumonia Acute Sciatica Acute Myasthenia gravis Chronic
--- NOTE | 2016-10-07 14:34 | HOSPPROG ---
Hospitalist Progress Note Assessment/Plan: This is a 61-year-old female, status post L4-5 decompression, postoperative day 2, with new tachycardia. # acute atrial fibrillation with rapid ventricular response- patient developed heart rates in the 160s to 170s 09/25/16- initially converted to sinus on dilt gtt but back in Afib overnight - TELE (personally reviewed and interpreted) afib in 110's oxygen saturation 97% on 4 L -CT PE - negative for pulmonary embolism ECHO - normal valves and LV function - TSH 1.3 - consulting cardiology for recs re: ASA as Chadsvasc 1- however pt says contraindicated in MG - also asking cardiology re: rate control meds as BB and CB have some reported contraindications in MG - holding all meds currently - if recurrent RVR - cards rec IV digoxin # Myasthenia gravis- patient describing limited activity at home- recommended that she follow with Neurology in the outpatient setting to further discuss her use of her MG medications # Prophylaxis: Patient is on Lovenox. # status post L4-L5 surgery- postop day 3 - management per primary team # Diet: Regular. # Disposition: I expect greater than 2 midnights as patient is early in her postoperative recovery with a new medical finding. I have discussed the case with Cardiology - we are further researching rate control meds in MG Subjective: feels tired Objective: Vital Signs Temp Pulse Resp BP Pulse Ox 36.6 C 120 H 16 111/86 H 95 10/07/16 11:19 10/07/16 13:16 10/07/16 11:19 10/07/16 11:19 10/07/16 11:19 Laboratory Results 10/05/16 12:15 10/05/16 11:19 10/06/16 10/07/16 10/08/16 05:59 05:59 05:59 Intake Total 555 1060 Output Total 1050 3 525 Balance -495 1057 -525 - Physical Exam Constitutional: chronically ill appearing Eyes: anicteric sclera Ears, Nose, Mouth, Throat: moist mucous membranes Cardiovascular: irregularly irregular, tachycardia Respiratory: no respiratory distress Gastrointestinal: normoactive bowel sounds, soft, non-tender abdomen Genitourinary: no bladder fullness Skin: warm, normal color Musculoskeletal: No asymmetric calves Neurologic: AAOx3 Psychiatric: interacting appropriately, not anxious Lymph, Heme, Immunologic: no cervical LAD ICD10 Worksheet Patient Problems: Problems Problem Status Onset Fusion of lumbar spine Acute Pneumonia Acute Sciatica Acute Myasthenia gravis Chronic
[2016-10-07] MEDS: oxyCODONE IR 5 MG TAB PO PRN (16:03)
[2016-10-08] MEDS: oxyCODONE IR 5 MG TAB PO PRN ×2 (05:24→15:47)
[2016-10-08 06:23] LABS: ANION GAP 7 mEq/L (8-16); CARBON DIOXIDE 35 mEq/l (22-31); CHLORIDE 97 mEq/L (97-110); CREATININE 0.6 mg/dL (0.6-1.0); GLOMERULAR FILTRATION RATE > 60; GLUCOSE 137 mg/dL (70-100); POTASSIUM 4.1 mEq/L (3.5-5.2); SODIUM 139 mEq/L (134-144)
[2016-10-08] MEDS ORDERED: NS 500 ML IV ONE (08:34)
[2016-10-08] MEDS: BUDESONIDE/FORMOTEROL 80/4.5 60 PUFFS/MDI IH SCH ×2 (08:41→20:51)
--- NOTE | 2016-10-08 09:33 | NEUSURGPN ---
Date of Surgery: 10/03/16 Post Op Day: 5 Assessment/Plan: Assessment/Plan: Assessment: 61 yo F sp L4/5 TLIF with new onset arrhythmia post op. Plan: afib per cardiology and IM, appreciate assistance in the care of this patient PT/OT x-rays look great scd/cody/lovenox for dvt prophylaxis please call with neuro changes ready to DC to rehab once cleared by cardio/IM discussed with DR Mcconnell Subjective: Pt feeling OK, generally weak over all. Pain is well controlled Objective: AAOx3 NAD VSS MAEx4 Motor 5/5 BLE Incision cdi steri strips in place, no dressing +LT Urinary Catheter in Place: No - Physician Discussed Patient with DrJohn: Mario Neurosurgery Physical Exam - Vitals, I&O, Labs I and O 10/07/16 10/08/16 10/09/16 05:59 05:59 05:59 Intake Total 1060 850 Output Total 3 1328 Balance 1057 -478 Intake: Oral (ml) 1040 850 IV Intake (ml) 20 Output: Urine (ml) 3 1328 Incontinence 3 Toilet 3 1325 Other: Intake Quantity Yes Sufficient Number of Voids Incontinence 2 Toilet 1 3 Number of Stools Incontinence 1 Vital Signs Temp Pulse Resp BP Pulse Ox 36.8 C 98 18 123/80 H 94 10/08/16 07:55 10/08/16 07:55 10/08/16 07:55 10/08/16 07:55 10/08/16 07:55 Laboratory Results 10/05/16 12:15 10/08/16 05:35 ICD10 Worksheet Patient Problems: Problems Problem Status Onset Fusion of lumbar spine Acute Pneumonia Acute Sciatica Acute Myasthenia gravis Chronic
[2016-10-08] MEDS: azaTHIOprine 50 MG TAB PO SCH (09:48)
[2016-10-08] MEDS: PANTOPRAZOLE SODIUM 40 MG TAB PO SCH (09:48)
[2016-10-08] MEDS: SERTRALINE HCL 100 MG TAB PO SCH (09:48)
[2016-10-08] MEDS: ENOXAPARIN 40 MG/0.4 ML SYR SC SCH (09:48)
[2016-10-08] MEDS: GABAPENTIN 300 MG CAP PO SCH ×3 (09:48→20:18)
[2016-10-08] MEDS: SENNOSIDES/DOCUSATE SODIUM TAB PO SCH ×2 (09:48→20:18)
[2016-10-08] MEDS: morphINE SR 15 MG TAB PO SCH ×2 (09:49→20:18)
[2016-10-08] MEDS: POLYETHYLENE GLYCOL 3350 17 GM PKT PO SCH ×3 (09:51→20:18)
--- NOTE | 2016-10-08 11:00 | HOSPPROG ---
Hospitalist Progress Note Assessment/Plan: This is a 61-year-old female, status post L4-5 decompression, postoperative day 2, with new tachycardia. # acute atrial fibrillation with rapid ventricular response- patient developed heart rates in the 160s to 170s 09/25/16- initially converted to sinus on dilt gtt remains in Afib overnight - TELE (personally reviewed and interpreted) afib in 110-120s- however with activity up to 180's oxygen saturation 94% on 4 L -CT PE - negative for pulmonary embolism ECHO - normal valves and LV function - TSH 1.3 - cardiology initial recs to stop ASA and diltiazem- BB also appear contraindicated in MG - Re-discussing with Dr. Carr today as HR with activity too high this am # mild contraction alkalosis -bicarb up to 35 today - NS bolus 500cc this am # Myasthenia gravis- patient describing limited activity at home- recommended that she follow with Neurology in the outpatient setting to further discuss her use of her MG medications # Prophylaxis: Patient is on Lovenox. # status post L4-L5 surgery- postop day 5 - management per primary team # Diet: Regular. # Disposition: I expect greater than 2 midnights as patient is early in her postoperative recovery with a new medical finding. I have discussed the case with Cardiology - we are further investigating options of AFib rate control this am Subjective: denies CP Objective: Vital Signs Temp Pulse Resp BP Pulse Ox 36.8 C 98 18 123/80 H 94 10/08/16 07:55 10/08/16 07:55 10/08/16 07:55 10/08/16 07:55 10/08/16 07:55 Laboratory Results 10/05/16 12:15 10/08/16 05:35 10/07/16 10/08/16 10/09/16 05:59 05:59 05:59 Intake Total 1060 850 980 Output Total 3 1328 650 Balance 1057 -478 330 - Physical Exam Constitutional: obese Eyes: anicteric sclera Ears, Nose, Mouth, Throat: moist mucous membranes Cardiovascular: irregularly irregular, tachycardia Respiratory: no respiratory distress Gastrointestinal: normoactive bowel sounds, soft, non-tender abdomen Genitourinary: no bladder fullness Skin: warm Musculoskeletal: No asymmetric calves Neurologic: AAOx3 Psychiatric: interacting appropriately Lymph, Heme, Immunologic: no cervical LAD ICD10 Worksheet Patient Problems: Problems Problem Status Onset Fusion of lumbar spine Acute Pneumonia Acute Sciatica Acute Myasthenia gravis Chronic
[2016-10-08] MEDS: PYRIDOSTIGMINE BROMIDE 60 MG TAB PO PRN ×3 (11:27→22:13)
[2016-10-08] MEDS: DIGOXIN 250 MCG TAB PO SCH ×3 (12:19→22:13)
--- NOTE | 2016-10-08 13:11 | PDCARPN ---
Cardiology Progress Note Assessment/Plan: Call from Dr. Wilde re. patient's AF with RVR. I did not see patient as she did not think I needed to see patient today but wanted guidance. Patient with AF with RVR, recent lumbar fusion, h.o. myasthenia gravis. My recommendations were: 1. Dr. Wilde will talk with neurosurgery to see when full anticoagulation is safe. Per her, patient did not want to take ASA. 2. BB and CCB are relatively contraindicated in MG as it may make neuromuscular function worse 3. Recommended that she start patient on digoxin, oral loading today followed by daily dosing of 0.25 mg daily 4. If patient has uncontrolled V rates, will need to consider SASCHA guided CV, will need anticoagulation for this. Objective: Vital Signs (8 Hrs) Temp Pulse Resp BP Pulse Ox 10/08/16 12:19 134 H 10/08/16 11:05 37.3 C 134 H 18 116/96 H 95 10/08/16 07:55 36.8 C 98 18 123/80 H 94 Intake/Output (24 Hrs) 10/07/16 10/08/16 10/09/16 11:59 11:59 11:59 Intake Total 1060 1830 Output Total 528 1453 250 Balance 532 377 -250 Intake: Oral (ml) 1040 1830 IV Intake (ml) 20 Output: Urine (ml) 528 1453 250 Incontinence 3 Toilet 528 1450 250 Other: Intake Quantity Yes Sufficient Number of Voids Incontinence 1 Toilet 1 1 1 Number of Stools Incontinence 1 Result Diagrams: 10/05/16 12:15 10/08/16 05:35 ICD10 Worksheet Patient Problems: Problems Problem Status Onset Fusion of lumbar spine Acute Pneumonia Acute Sciatica Acute Myasthenia gravis Chronic
--- NOTE | 2016-10-08 16:04 | PDCARCONS ---
Cardiology Consult Reason for Consult: Atrial fibrillation Chief Complaint: Palpitations Requesting Physician: Dr. Wilde History of Present Illness: 61-year-old female who was admitted to the hospital for lumbar fusion. She also has a history of myasthenia gravis. Dr. Zepeda discussed the patient's case with Dr. Cisco Jade yesterday but formal consultation was not done. I was asked to formally consult on the patient today. Patient has had palpitations in the past but has not sought medical care for them. She underwent lumbar fusion earlier this week. She had atrial fibrillation that spontaneously terminated. She has had recurrence of atrial fibrillation. She reports palpitations. She denies lightheadedness or syncope. She does not have chest pain or shortness of breath. Her significant other is present in the room at the time of this visit. History Information - Allergies/Home Medication List Allergies/Adverse Reactions: acetaminophen Allergy (Intermediate, Verified 05/08/16 14:17) Hives Home Medications: Azathioprine [AZATHIOPRINE] 100 mg PO DAILY 08/16/15 [Last Taken 10/02/16] Ergocalciferol [Vitamin D2 (*)] 50,000 unit PO Q30D 08/16/15 [Last Taken ] Mometasone/Formoterol [Dulera 200 Mcg/5 Mcg Inhaler] 1 puffs IH DAILY 08/16/15 [ Last Taken 10/02/16] Pantoprazole Sodium [Protonix 40mg (*)] 40 mg PO DAILY 08/16/15 [Last Taken 07/09] Sertraline HCl [Zoloft 100mg (*)] 100 mg PO DAILY 08/16/15 [Last Taken 10/02/16] Albuterol [Proventil Inhaler HFA (*)] 1 - 2 puffs IH Q4H PRN 05/08/16 [Last Taken 09/03/16] Gabapentin [Neurontin 300 MG (*)] 300 mg PO TID 05/08/16 [Last Taken 10/02/16] Pyridostigmine [place] [Mestinon 60mg (*)] 15 - 60 mg PO Q3-4PRN PRN 09/16/16 [ Last Taken 2 Months Ago] I have personally reviewed and updated: medical history, social history, surgical history - Social History Smoking Status: Never smoked Physical Exam Temp Pulse Resp BP Pulse Ox 37.3 C 120 H 18 116/96 H 95 10/08/16 11:05 10/08/16 15:47 10/08/16 11:05 10/08/16 11:05 10/08/16 11:05 O2 (L/minute) 4 Constitutional: no apparent distress, appears nourished Eyes: PERRL, anicteric sclera Ears, Nose, Mouth, Throat: moist mucous membranes Cardiovascular: irregularly irregular Respiratory: no respiratory distress Gastrointestinal: normoactive bowel sounds, soft, non-tender abdomen Lab and Imaging 10/05/16 12:15 10/08/16 05:35 WBC 11.35 10^3/uL (3.80-9.50) H 10/05/16 12:15 RBC 4.59 10^6/uL (4.18-5.33) 10/05/16 12:15 Hgb 13.3 g/dL (12.6-16.3) 10/05/16 12:15 Hct 40.1 % (38.0-47.0) 10/05/16 12:15 MCV 87.4 fL (81.5-99.8) 10/05/16 12:15 MCH 29.0 pg (27.9-34.1) 10/05/16 12:15 MCHC 33.2 g/dL (32.4-36.7) 10/05/16 12:15 RDW 12.7 % (11.5-15.2) 10/05/16 12:15 Plt Count 211 10^3/uL (150-400) 10/05/16 12:15 MPV 11.4 fL (8.7-11.7) 10/04/16 04:54 Neut % (Auto) 78.1 % (39.3-74.2) H 10/04/16 04:54 Lymph % (Auto) 11.6 % (15.0-45.0) L 10/04/16 04:54 [place] % (Auto) 9.8 % (4.5-13.0) 10/04/16 04:54 Eos % (Auto) 0.1 % (0.6-7.6) L 10/04/16 04:54 Baso % (Auto) 0.1 % (0.3-1.7) L 10/04/16 04:54 Nucleat RBC Rel Count 0.0 % (0.0-0.2) 10/04/16 04:54 Absolute Neuts (auto) 7.22 10^3/uL (1.70-6.50) H 10/04/16 04:54 Absolute Lymphs (auto) 1.07 10^3/uL (1.00-3.00) 10/04/16 04:54 Absolute Monos (auto) 0.91 10^3/uL (0.30-0.80) H 10/04/16 04:54 Absolute Eos (auto) 0.01 10^3/uL (0.03-0.40) L 10/04/16 04:54 Absolute Basos (auto) 0.01 10^3/uL (0.02-0.10) L 10/04/16 04:54 Absolute Nucleated RBC 0.00 10^3/uL (0-0.01) 10/04/16 04:54 Immature Gran % 0.3 % (0.0-1.1) 10/04/16 04:54 Immature Gran # 0.03 10^3/uL (0.00-0.10) 10/04/16 04:54 D-Dimer 1.20 ug/mLFEU (0.00-0.50) H 10/05/16 12:15 Sodium 139 mEq/L (134-144) 10/08/16 05:35 Potassium 4.1 mEq/L (3.5-5.2) 10/08/16 05:35 Chloride 97 mEq/L (97-110) 10/08/16 05:35 Carbon Dioxide 35 mEq/l (22-31) H D 10/08/16 05:35 Anion Gap 7 mEq/L (8-16) L 10/08/16 05:35 BUN 9 mg/dL (7-23) 10/08/16 05:35 Creatinine 0.6 mg/dL (0.6-1.0) 10/08/16 05:35 Estimated GFR > 60 10/08/16 05:35 Glucose 137 mg/dL (70-100) H 10/08/16 05:35 Calcium 9.0 mg/dL (8.5-10.4) 03/18/17 05:35 TSH 1.370 uIU/mL (0.465-4.680) 10/05/16 11:19 Patient ABO/Rh A POSITIVE 10/03/16 06:20 Antibody Screen NEGATIVE 10/03/16 06:20 Visualized and Interpreted EKG results: Yes EKG additional interpertation: Atrial fibrillation with rapid ventricular response Telemetry: Atrial fibrillation with rapid ventricular response Echocardiogram: Normal left ventricular function. No significant valvular heart disease. A/P Assessment: 1. Atrial fibrillation with rapid ventricular response 2. Recent lumbar fusion surgery 3. Myasthenia gravis Plan: 61-year-old female with recent lumbar fusion surgery. She has a history of myasthenia gravis for which she is on pyridostigmine. She is presenting with recurrent postoperative atrial fibrillation with rapid ventricular response. Beta-blockers and calcium channel blockers are relatively contraindicated in her situation because they can make her myasthenia gravis worse. I am going to start her on digoxin, oral loading today followed by daily dose of 0.25 mg a day. This will control her ventricular rates when she is at rest but I am not very optimistic digoxin will control her heart rates when she is exercising. Hopefully she has spontaneous conversion to sinus rhythm as she did before. If not, she will need a cardioversion on Monday after 48 hours of digoxin. If she is still in atrial fibrillation tomorrow, plan is to start her on Pradaxa 150 mg twice daily tomorrow morning. I have talked with Dr. Pepe Martin. He does not want the patient to take aspirin. However he is comfortable with the patient's starting on Pradaxa since it has a reversal agent available and since she is 5 days post surgery. Chads Vasc score is 0, she does not need long-term anticoagulation for atrial fibrillation in my opinion. However if she does have cardioversion, she will need 6 weeks of anticoagulation with Pradaxa post cardioversion. I have discussed the case with Dr. Yary Castrejon who will be taking over the patient's care tomorrow morning.
[2016-10-09] MEDS: PYRIDOSTIGMINE BROMIDE 60 MG TAB PO PRN ×2 (05:17→08:17)
[2016-10-09] MEDS: oxyCODONE IR 5 MG TAB PO PRN (05:18)
[2016-10-09 06:21] LABS: ANION GAP 9 mEq/L (8-16); CALCIUM 8.8 mg/dL (8.5-10.4); CARBON DIOXIDE 29 mEq/l (22-31); CHLORIDE 98 mEq/L (97-110); CREATININE 0.6 mg/dL (0.6-1.0); GLOMERULAR FILTRATION RATE > 60; GLUCOSE 125 mg/dL (70-100); POTASSIUM 4.4 mEq/L (3.5-5.2); SODIUM 136 mEq/L (134-144)
[2016-10-09 08:04] VITALS: TEMP 98.1
[2016-10-09] MEDS: PANTOPRAZOLE SODIUM 40 MG TAB PO SCH (08:17)
[2016-10-09] MEDS: azaTHIOprine 50 MG TAB PO SCH (08:17)
[2016-10-09] MEDS: ENOXAPARIN 40 MG/0.4 ML SYR SC SCH (08:17)
[2016-10-09] MEDS: SERTRALINE HCL 100 MG TAB PO SCH (08:17)
[2016-10-09] MEDS: morphINE SR 15 MG TAB PO SCH (08:17)
[2016-10-09] MEDS: GABAPENTIN 300 MG CAP PO SCH (08:17)
[2016-10-09] MEDS: SENNOSIDES/DOCUSATE SODIUM TAB PO SCH (08:18)
[2016-10-09] MEDS: POLYETHYLENE GLYCOL 3350 17 GM PKT PO SCH (08:18)
--- NOTE | 2016-10-09 08:37 | NEUSURGPN ---
Assessment/Plan: Assessment/Plan: Assessment: 61 yo F sp L4/5 TLIF with new onset arrhythmia post op, converted again overnight Plan: afib per cardiology and IM, appreciate assistance in the care of this patient, May start anticoagulation if needed PT/OT x-rays look great scd/cody/lovenox for dvt prophylaxis please call with neuro changes ready to DC to rehab once cleared by cardio/IM discussed with DR Mcconnell Subjective: Pt feeling well, asking when she can shower. rhythm has converted again Pain is well controlled Objective: AAOx3 NAD VSS MAEx4 Motor 5/5 BLE except 4+/5 L HF. Incision cdi steri strips in place, no dressing +LT - Physician Discussed Patient with : Mario Neurosurgery Physical Exam - Vitals, I&O, Labs I and O 10/08/16 10/09/16 10/10/16 05:59 05:59 05:59 Intake Total 850 2130 Output Total 1328 1650 400 Balance -478 480 -400 Intake: Oral (ml) 850 1630 IV Infused (ml) 500 Ns 500 ml @ 1500 mls/hr 500 IV ONCE ONE Rx#: [id number] Output: Urine (ml) 1328 1650 400 Incontinence 3 500 Toilet 1325 1150 400 Other: Intake Quantity Yes Yes Sufficient Number of Voids Incontinence 2 1 1 Toilet 3 1 1 Number of Stools Incontinence 1 1 Toilet 1 Vital Signs Temp Pulse Resp BP Pulse Ox 36.7 C 76 18 138/98 H 95 10/09/16 08:03 10/09/16 08:03 10/09/16 08:03 10/09/16 08:03 10/09/16 08:03 Laboratory Results 10/05/16 12:15 10/09/16 05:30 ICD10 Worksheet Patient Problems: Problems Problem Status Onset Fusion of lumbar spine Acute Pneumonia Acute Sciatica Acute Myasthenia gravis Chronic
--- NOTE | 2016-10-09 08:56 | PDCARPN ---
Cardiology Progress Note Assessment/Plan: Assessment/plan: 61-year-old female with no known cardiovascular history. She had lumbar spine fusion on October 03. She did have a short episode of atrial fibrillation shortly after this. Then went back into atrial fibrillation a couple of days later. Periods of rapid ventricular response. No evidence of ischemia or heart failure. TSH normal. She was started on digoxin. She converted to normal sinus rhythm at 1:00 a.m. on October 09. 1. Paroxysmal atrial fibrillation: Her CHADS2 Vasc score is 0. Given her recent back surgery, will hold off on Pradaxa at this time. Per Neurosurgery, aspirin is relatively contraindicated. We will continue digoxin. Decrease dose to 125 mcg tomorrow. She will require digoxin level in the outpatient setting in 7 days. We will have her wear a 30 day event recorder to assess for occult atrial fibrillation and make further decisions about ongoing anticoagulation. Her heart is structurally normal based on echo other than a mildly dilated right ventricle which may be explained by her history of asthma. could consider evaluation for sleep disorder breathing as a trigger for her atrial fibrillation. 2. Recent lumbar spine fusion: Per Neurosurgery.. No need for blood thinners at this time. 3. Myasthenia gravis: Beta-blockers and calcium channel blockers to control her atrial fibrillation would be relatively contraindicated in the setting of myasthenia gravis. Continue outpatient medications. 4. Asthma: She sees Dr. Vidal. Her lungs sound clear on exam. 10/09/16 09:18 Subjective: She feels better this morning. Her chest feels "calmer and ". She denies dyspnea, presyncope. She has had some abdominal cramping because of a lot of laxatives. She has had a bowel movement since surgery. She is urinating normally. In retrospect, she has had episodes of heart racing in the past but was never diagnosed with any particular arrhythmia. Reviewed/Discussed With: hospitalist Objective: Vital Signs (8 Hrs) Temp Pulse Resp BP Pulse Ox 10/09/16 08:03 36.7 C 76 18 138/98 H 95 10/09/16 07:34 85 10/09/16 03:42 37.2 C 94 18 136/79 H 94 Intake/Output (24 Hrs) 10/08/16 10/09/16 10/10/16 05:59 05:59 05:59 Intake Total 850 2130 Output Total 1328 1650 Balance -478 480 Intake: Oral (ml) 850 1630 IV Infused (ml) 500 Ns 500 ml @ 1500 mls/hr 500 IV ONCE ONE Rx#: [id number] Output: Urine (ml) 1328 1650 Incontinence 3 500 Toilet 1325 1150 Other: Intake Quantity Yes Yes Sufficient Number of Voids Incontinence 2 1 Toilet 3 1 Number of Stools Incontinence 1 1 nuclear stress. JVP less than 10. Carotids equal and 2+ bilaterally without bruit. Regular rate and rhythm with soft systolic ejection murmur at the base. No gallop or rub. Lungs clear to auscultation bilaterally without wheezes rhonchi or rales Extremities are warm well perfused without cyanosis clubbing or edema Neuro alert and oriented x3 without gross focal neurologic deficits. Appropriate mood and affect. Result Diagrams: 10/05/16 12:15 10/09/16 05:30 EKG: reviewed tracing from October 05: Atrial fibrillation with rapid ventricular response Telemetry: converted to normal sinus rhythm early this morning. Otherwise atrial fibrillation with intermittent periods of rapid ventricular response. Echocardiogram: Normal LV size and systolic function. No significant valvular abnormalities. Limited views of the right ventricle show mild RV dilation but probably normal RV systolic function ICD10 Worksheet Patient Problems: Problems Problem Status Onset Pneumonia Acute Myasthenia gravis Chronic Sciatica Acute Fusion of lumbar spine Acute
[2016-10-09] MEDS ORDERED: DIGOXIN 250 MCG TAB PO ONE (09:21)
--- NOTE | 2016-10-09 09:54 | HOSPPROG ---
Hospitalist Progress Note Assessment/Plan: This is a 61-year-old female, status post L4-5 decompression, postoperative day 2, with new tachycardia. # acute atrial fibrillation with rapid ventricular response- patient developed heart rates in the 160s to 170s 09/25/16- initially converted to sinus on dilt gtt- then back in Afib CT PE - negative for pulmonary embolism ECHO - normal valves and LV function - TSH 1.3 patient was loaded with digoxin yesterday and converted into sinus overnight TELE (personally reviewed and interpreted) sinus in the 70-90's oxygen saturation 94% on 3 L - - Chadvsvasc 0 - no aspirin - continue daily digoxin per cardiology - they will follow as outpt # mild contraction alkalosis -bicarb 35 -> 29 today after NS bolus 500cc yesterday # Myasthenia gravis- patient describing limited activity at home- recommended that she follow with Neurology in the outpatient setting to further discuss her use of her MG medications # Prophylaxis: Patient is on Lovenox. # status post L4-L5 surgery- postop day 5 - management per primary team # Diet: Regular. # Disposition: I expect greater than 2 midnights as patient is early in her postoperative recovery with a new medical finding. I have discussed the case with RN - will arrange disposition meds with cardiology as patient in sinus and stable for transfer to rehab Subjective: converted overnight - fatigued Objective: Vital Signs Temp Pulse Resp BP Pulse Ox 36.7 C 76 18 138/98 H 95 10/09/16 08:03 10/09/16 08:03 10/09/16 08:03 10/09/16 08:03 10/09/16 08:03 Laboratory Results 10/05/16 12:15 10/09/16 05:30 10/08/16 10/09/16 10/10/16 05:59 05:59 05:59 Intake Total 850 2130 Output Total 1328 1650 400 Balance -478 480 -400 ICD10 Worksheet Patient Problems: Problems Problem Status Onset Arrhythmia Acute Fusion of lumbar spine Acute Pneumonia Acute Sciatica Acute Myasthenia gravis Chronic
[2016-10-09] MEDS: BUDESONIDE/FORMOTEROL 80/4.5 60 PUFFS/MDI IH SCH (09:59)
[2016-10-09] MEDS ORDERED: DIGOXIN 250 MCG TAB PO SCH (10:00)
[2016-10-09] MEDS ORDERED: DIGOXIN 50 MCG/ML UDSYR PO SCH (10:00)
--- NOTE | 2016-10-09 10:02 | CPEKG ---
Heart Rate: 80 RR Interval: 750 P-R Interval: 168 QRSD Interval: 94 QT Interval: 368 QTC Interval: 425 P [place]: 58 QRS [place]: 27 T Wave [place]: 1 EKG Severity - BORDERLINE ECG - EKG Impression: SINUS RHYTHM EKG Impression: BORDERLINE T ABNORMALITIES, ANTERIOR LEADS Electronically Signed By: Zander Campa 09-Oct-2016 18:26:34
--- NOTE | 2016-10-09 11:23 | PDIAF ---
- Diagnosis Diagnosis: lumbar stenosis, new onset cardiac arrhythmia Code Status: Full Code - Medication Management Discharge Medications: Medications to Continue on Transfer Azathioprine [AZATHIOPRINE] 100 mg PO DAILY 08/16/15 [Last Taken 10/02/16] Ergocalciferol [Vitamin D2 (*)] 50,000 unit PO Q30D 08/16/15 [Last Taken ] Mometasone/Formoterol [Dulera 200 Mcg/5 Mcg Inhaler] 1 puffs IH DAILY 08/16/15 [ Last Taken 10/02/16] Pantoprazole Sodium [Protonix 40mg (*)] 40 mg PO DAILY 08/16/15 [Last Taken 07/09] Sertraline HCl [Zoloft 100mg (*)] 100 mg PO DAILY 08/16/15 [Last Taken 10/02/16] Albuterol [Proventil Inhaler HFA (*)] 1 - 2 puffs IH Q4H PRN 05/08/16 [Last Taken 09/03/16] Gabapentin [Neurontin 300 MG (*)] 300 mg PO TID 05/08/16 [Last Taken 10/02/16] Pyridostigmine [place] [Mestinon 60mg (*)] 15 - 60 mg PO Q3-4PRN PRN 09/16/16 [ Last Taken 2 Months Ago] Budesonide/Formoterol 80/4.5 [Symbicort 80-4.5 Mcg Inhaler] 2 puffs IH BID #0 mdi 10/09/16 [Last Taken Unknown] Digoxin [Lanoxin 125 mcg (RX)] 125 mcg PO DAILY AT 10AM #30 tab 10/09/16 [Last Taken Unknown] Polyethylene Glycol 3350 [Miralax 17 gm (*)] 17 gm PO TID #0 pkt 10/09/16 [Last Taken Unknown] Sennosides/Docusate Sodium [Senokot-S] 1 - 2 tab PO BID #0 tab 10/09/16 [Last Taken Unknown] morphINE SR [Ms Contin/Oramorph 15 mg (*)] 15 mg PO BID #0 tab 10/09/16 [Last Taken Unknown] oxyCODONE IR [Oxycodone Ir (*)] 5 mg PO Q3HRS PRN #0 tab 10/09/16 [Last Taken Unknown] Discharge Medications: Refer to the Discharge Home Medication list for PRN reason. PICC Care - Routine: N/A - Orders Services needed: Registered Nurse, Certified Construction Administrative Assistant, Master Steel Heater , Physical Therapy, Occupational Therapy Diet Recommendation: no restrictions on diet Diet Texture: Regular Texture Diet - Follow Up Care Current Providers and Referrals: Renee Borja MD [Primary Care Provider] - Roe Carr MD [Medical Doctor] - ([facility] will call to schedule 30 day event recorder and follow up with Dr. Carr. ) Pepe Martin MD [Medical Doctor] -
[2016-10-09 11:30] VITALS: BP 133/79; PULSE 84; RESP 18; O2SAT 91
[2016-10-10] MEDS ORDERED: DIGOXIN 125 MCG TAB PO SCH (10:00)
[2016-10-18] MEDS ORDERED: ERGOCALCIFEROL 50,000 I.UNIT CAP PO SCH (09:00)
== END 2016-10-09 13:24 | DRG 460 ==
LOC: F3E 05:36 → F2N 10:17 → F3N 10-05 00:50 → F2W 10-05 15:16 → UNDODISIN 10-09 13:13
PROVIDERS: ADMIT Neurological Surgery; ATTEND Neurological Surgery
PROC: 4A1004G Monitoring of Central Nervous Electrical Activity, Intraoperative, Open Approach (ICD-10-PCS; principal; 2016-10-03 07:15)
PROC: 8E0WXBZ Computer Assisted Procedure of Trunk Region (ICD-10-PCS; principal; 2016-10-03 07:15)
PROC: 01NB0ZZ Release Lumbar Nerve, Open Approach (ICD-10-PCS; principal; 2016-10-03 07:15)
PROC: 0SG00AJ Fusion of Lumbar Vertebral Joint with Interbody Fusion Device, Posterior Approach, Anterior Column, Open Approach (ICD-10-PCS; principal; 2016-10-03 07:15)
PROC: 0ST20ZZ Resection of Lumbar Vertebral Disc, Open Approach (ICD-10-PCS; principal; 2016-10-03 07:15)
PROC: 02HV33Z Insertion of Infusion Device into Superior Vena Cava, Percutaneous Approach (ICD-10-PCS; 2016-10-05)
DX: M43.16 Spondylolisthesis, lumbar region (principal); M51.36 Other intervertebral disc degeneration, lumbar region; G70.00 Myasthenia gravis without (acute) exacerbation; I48.91 Unspecified atrial fibrillation; J45.909 Unspecified asthma, uncomplicated; E66.01 Morbid (severe) obesity due to excess calories; G89.29 Other chronic pain; F32.9 Major depressive disorder, single episode, unspecified
CPT/HCPCS: 97110-GP; 97116-GP; 97161-GP; 97165-GO; 97530-GO; 97530-GP; 97535-GO; C1713; C1751; G8978-GP-CJ; G8979-GP-CI; G8987-GO-CK; G8988-GO-CI; G8989-GO-CJ; J0690; J1100; J1170; J1650; J2250; J2274; J2370; J2405; J2704; J3010; J7500; Q9967

== ENCOUNTER → 2016-11-02 | Outpatient (CLI) | payer OTHER | LOC: CIMAGING 14:35 | PROVIDERS: ATTEND Internal Medicine | DX: R05 Cough (principal) | CPT/HCPCS: 71020-PO ==

== ENCOUNTER → 2017-01-23 | Outpatient (CLI) | payer OTHER | LOC: CLAB 11:04 | PROVIDERS: ATTEND Physician Assistant Surgical | DX: Z09 Encounter for follow-up examination after completed treatment for conditions other than malignant neoplasm (principal); Z98.1 Arthrodesis status | CPT/HCPCS: 72100-PO ==

== ENCOUNTER → 2017-05-05 | Outpatient (CLI) | payer OTHER | LOC: CIMAGING 14:22 | PROVIDERS: ATTEND Neurological Surgery | DX: Z09 Encounter for follow-up examination after completed treatment for conditions other than malignant neoplasm (principal); Z98.1 Arthrodesis status | CPT/HCPCS: 72100-PO ==

== ENCOUNTER → 2017-10-18 | Outpatient (CLI) | payer OTHER | LOC: CIMAGING 10:48 | PROVIDERS: ATTEND Neurological Surgery | DX: Z98.1 Arthrodesis status (principal) | CPT/HCPCS: 72100-PO ==

== ENCOUNTER 2018-05-30 04:21 | Emergency (ER) | payer OTHER ==
--- NOTE | 2018-05-30 04:26 | EDPHY ---
H & P Time Seen by Provider: 05/30/18 04:26 HPI/ROS: HPI CHIEF COMPLAINT: Epistaxis. HISTORY OF PRESENT ILLNESS: 63-year-old female, presents emergency room with right Nare epistaxis. Started 2.5 hr ago unable to control at home. Patient does have a history of AFib but not on any anticoagulation. She has had an ongoing nosebleed this morning and she was unable to control at home so she decided to come the emergency room. Upon arrival hemodynamically stable no acute distress. Past Medical History: AFib. Myasthenia gravis. Thyroid disease. Past Surgical History: No recent surgery Social History: Denies drugs alcohol tobacco. Family History: Noncontributory ROS REVIEW OF SYSTEMS: 10 Systems were reviewed and negative with the exception of the elements mentioned in the history of present illness. Exam Constitutional triage nursing summary reviewed, vital signs reviewed, awake/ alert. Eyes normal conjunctivae and sclera, EOMI, PERRLA. HENT Right Nare: Epistaxis present. Appears to be an anterior bleed. No evidence of posterior bleed on exam. Left Nare: normal. moist mucus membranes , neck supple/ no meningismus, no raccoon eyes. Respiratory clear to auscultation bilaterally, normal breath sounds, no respiratory distress, no wheezing. Cardiovascular rate normal, regular rhythm, no murmur, no edema, distal pulses normal. Gastrointestinal soft, non-tender, no rebound, no guarding, normal bowel sounds, no distension, no pulsatile mass. Genitourinary no CVA tenderness. Musculoskeletal no midline vertebral tenderness, full range of motion, no calf swelling, no tenderness of extremities, no meningismus, good pulses, neurovascularly intact. Skin pink, warm, & dry, no rash, skin atraumatic. Neurologic awake, alert and oriented x 3, AAOx3, moves all 4 extremities equally, motor intact, sensory intact, CN II-XII intact, normal cerebellar, normal vision, normal speech. Psychiatric normal mood/affect. Heme/Lymph/Immune no lymphadenopathy. Differential Diagnosis: Includes but is not limited to in a particular order epistaxis., anterior nose bleed, posterior nosebleed Medical Decision Making: Plan for this patient Afrin initially nasal clamp. However continues till bleed. Silver nitrate sticks were applied to the anterior bleed. Re-evaluation: 525: Patient had Epistaxis, out of the right nare. Re-examination no further epistaxis. She had good hemostasis with Silver Nitrate cauterization. Nasal clamp was applied for 30 min. The nasal clamp is now off and we observing for recurrence of bleeding. 0630: Patient re-evaluated no for and epistaxis. This was cauterized with silver nitrate stick. Patient does understand she may have some darker discharge from her right near. Do not blow her nose for the next 24-48 hours. Follow up with ENT. Return to the ER for worsening symptoms questions or concerns she is comfortable this plan understands. Source: Patient - Medical/Surgical History Hx Asthma: Yes Hx Chronic Respiratory Disease: No Hx Diabetes: No Hx Cardiac Disease: No Hx Renal Disease: No Hx Cirrhosis: No Hx Alcoholism: No Hx HIV/AIDS: No Hx Splenectomy or Spleen Trauma: No Other PMH: Myasthenia Gravis, THYMEctomy, Hysterectomy, L knee, tonsilectomy - Social History Smoking Status: Never smoked Constitutional: Initial Vital Signs Temperature (C) 36.6 C 05/30/18 04:27 Heart Rate 74 05/30/18 04:27 Respiratory Rate 16 05/30/18 04:27 Blood Pressure 134/97 H 05/30/18 04:27 O2 Sat (%) 92 05/30/18 04:27 O2 Delivery Mode Room Air Allergies/Adverse Reactions: acetaminophen Allergy (Intermediate, Verified 05/08/16 14:17) Hives Home Medications: Medication Instructions Recorded Ergocalciferol [Vitamin D2 (*)] 50,000 unit PO Q30D 08/16/15 Mometasone/Formoterol [Dulera 200 1 puffs IH DAILY 08/16/15 Mcg/5 Mcg Inhaler] Pantoprazole Sodium [Protonix 40mg 40 mg PO DAILY 08/16/15 (*)] Sertraline HCl [Zoloft 100mg (*)] 100 mg PO DAILY 08/16/15 azaTHIOprine [AZATHIOPRINE] 100 mg PO DAILY 08/16/15 Albuterol [Proventil Inhaler HFA 1 - 2 puffs IH Q4H PRN 05/08/16 (*)] Gabapentin [Neurontin 300 MG (*)] 300 mg PO TID 05/08/16 Pyridostigmine [place] [Mestinon 15 - 60 mg PO Q3-4PRN PRN 09/16/16 60mg (*)] Budesonide/Formoterol 80/4.5 2 puffs IH BID #0 mdi 10/09/16 [Symbicort 80-4.5 Mcg Inhaler] Digoxin [Lanoxin 125 mcg (RX)] 125 mcg PO DAILY AT 10AM #30 tab 10/09/16 Polyethylene Glycol 3350 [Miralax 17 gm PO TID #0 pkt 10/09/16 17 gm (*)] Sennosides/Docusate Sodium 1 - 2 tab PO BID #0 tab 10/09/16 [Senokot-S] morphINE SR [Ms Contin/Oramorph 15 15 mg PO BID #0 tab 10/09/16 mg (*)] oxyCODONE IR [Oxycodone Ir (*)] 5 mg PO Q3HRS PRN #0 tab 10/09/16 Medical Decision Making - Data Points Medications Given: Discontinued Medications Oxymetazoline HCl (Afrin Nasal [place]) 2 sprays EACHNARE EDNOW ONE Stop: 05/30/18 04:46 Last Admin: 05/30/18 04:46 Dose: 2 spray Silver Nitrate/Potassium Nitrate (Silver Nitrate Applicator) 2 each TP EDNOW ONE Stop: 05/30/18 04:47 Last Admin: 05/30/18 04:46 Dose: 2 each Departure - Departure Disposition: Home, Routine, Self-Care Clinical Impression: Epistaxis Condition: Good Instructions: Nosebleed (ED) Additional Instructions: 1. If you start to rebleed, Place her head and forward position and place nasal clamp. 2. If you are unable to get it stopped, Return to the ER. 3. Follow up with ENT. Referrals: Renee Borja MD [Primary Care Provider] - As per Instructions Jose J Smith MD [Medical Doctor] - As per Instructions
[2018-05-30] MEDS ORDERED: OXYMETAZOLINE 30 ML NASAL SPRAY ONE ×2 (04:27→04:38)
[2018-05-30] MEDS ORDERED: SILVER NITRATE APPLICATOR 1 APPL TP ONE ×2 (04:31→04:46)
[2018-05-30] MEDS ORDERED: OXYMETAZOLINE 30 ML NASAL SPRAY EACHNARE ONE (04:45)
[2018-05-30 06:49] VITALS: BP 146/94
== END 2018-05-30 07:00 | disposition home or self-care (01) ==
PROC: 095K3ZZ Destruction of Nasal Mucosa and Soft Tissue, Percutaneous Approach (ICD-10-PCS; principal; 2018-05-30)
DX: R04.0 Epistaxis (principal); I48.91 Unspecified atrial fibrillation; G70.00 Myasthenia gravis without (acute) exacerbation

== ENCOUNTER 2018-05-30 18:59 | Emergency (ER) | payer OTHER ==
--- NOTE | 2018-05-30 20:13 | EDPHY ---
H & P Stated Complaint: nose bleed started at 1800 Time Seen by Provider: 05/30/18 20:12 HPI/ROS: HPI: This is a 63-year-old female who presents with Chief Complaint: nose bleed started at 1800 Location: Right nostril Quality: Bleeding Duration: Started at 6:00 p.m. Signs and Symptoms: no fever, no nausea, no vomiting, no photophobia, no noise sensitivity, no neck stiffness, no ear pain, no tinnitus, no nasal congestion, no sinus pressure, no weakness, no radiation, no aura Timing: Acute Severity: Moderate Context: Patient presents with spontaneous onset of right nostril bleeding that occurred at 6:00 p.m. While sitting watching TV with her . She reports that is draining in the back of her throat. She has not take any blood thinners that she has a history of myasthenis gravis. Patient was seen in this emergency room around 4:00 a.m. With silver nitrate cauterization of her bleeding of her right nostril. Patient reports that she has intermittent nosebleeds since 2000 and she is extremely frustrated. She denies any dizziness , chest pain, shortness of breath. Modifying Factors: See above Comment: ROS: A comprehensive 10 system review of systems is otherwise negative aside from elements mentioned in the history of present illness. MEDICAL/SURGICAL/SOCIAL HISTORY: Medical history: Myasthenia Gravis, Surgical history: Thymectomy, Hysterectomy, L knee, tonsillectomy Social history: . Disabled. Family history noncontributory. CONSTITUTIONAL: awake and alert, no obvious distress HEENT: Atraumatic and normocephalic, PERRL, EOMI. Nares patent; no rhinorrhea; no nasal mucosal edema. Tympanic membranes clear. Oropharynx clear, no exudate and moist pink mucosa. Airway patent. No lymphadenopathy. No meningismus. Cardiovascular: Normal S1/S2, regular rate, regular rhythm, without murmur rub or gallop. PULMONARY/CHEST: Symmetrical and nontender. Clear to auscultation bilaterally. Good air movement. No accessory muscle usage. ABDOMEN: Soft, nondistended, nontender, no rebound, no guarding, no peritoneal signs, no masses or organomegaly. No CVAT. EXTREMITIES: 2/2 pulses, strength 5/5, no deformities, no clubbing, no cyanosis or edema. NEUROLOGICAL: no focal neuro deficits. GCS 15. SKIN: Warm and dry, no erythema. no rash. Good capillary refill. Source: Patient Exam Limitations: No limitations - Personal History Current Tetanus/Diphtheria Vaccine: Yes Current Tetanus Diphtheria and Acellular Pertussis (TDAP): Yes Tetanus Vaccine Date: 2008 - Medical/Surgical History Hx Asthma: Yes Hx Chronic Respiratory Disease: No Hx Diabetes: No Hx Cardiac Disease: No Hx Renal Disease: No Hx Cirrhosis: No Hx Alcoholism: No Hx HIV/AIDS: No Hx Splenectomy or Spleen Trauma: No Other PMH: Myasthenia Gravis, THYMEctomy, Hysterectomy, L knee, tonsilectomy - Social History Smoking Status: Never smoked Constitutional: Initial Vital Signs Temperature (C) 37.1 C 05/30/18 19:06 Heart Rate 92 05/30/18 19:06 Respiratory Rate 18 05/30/18 19:06 O2 Sat (%) 93 05/30/18 19:06 O2 Delivery Mode Room Air Allergies/Adverse Reactions: acetaminophen Allergy (Intermediate, Verified 05/30/18 19:10) Hives Home Medications: Medication Instructions Recorded Ergocalciferol [Vitamin D2 (*)] 50,000 unit PO Q30D 08/16/15 Mometasone/Formoterol [Dulera 200 1 puffs IH DAILY 08/16/15 Mcg/5 Mcg Inhaler] Pantoprazole Sodium [Protonix 40mg 40 mg PO DAILY 08/16/15 (*)] Sertraline HCl [Zoloft 100mg (*)] 100 mg PO DAILY 08/16/15 azaTHIOprine [AZATHIOPRINE] 100 mg PO DAILY 08/16/15 Albuterol [Proventil Inhaler HFA 1 - 2 puffs IH Q4H PRN 05/08/16 (*)] Gabapentin [Neurontin 300 MG (*)] 300 mg PO TID 05/08/16 Pyridostigmine [place] [Mestinon 15 - 60 mg PO Q3-4PRN PRN 09/16/16 60mg (*)] Budesonide/Formoterol 80/4.5 2 puffs IH BID #0 mdi 10/09/16 [Symbicort 80-4.5 Mcg Inhaler] Digoxin [Lanoxin 125 mcg (RX)] 125 mcg PO DAILY AT 10AM #30 tab 10/09/16 Polyethylene Glycol 3350 [Miralax 17 gm PO TID #0 pkt 10/09/16 17 gm (*)] Sennosides/Docusate Sodium 1 - 2 tab PO BID #0 tab 10/09/16 [Senokot-S] morphINE SR [Ms Contin/Oramorph 15 15 mg PO BID #0 tab 10/09/16 mg (*)] oxyCODONE IR [Oxycodone Ir (*)] 5 mg PO Q3HRS PRN #0 tab 10/09/16 Medical Decision Making Procedures: Procedure: Epistaxis control. After verbal consent was obtained, the patient was anesthetized with 1% lidocaine with epinephrine. The anterior epistaxis was identified. The patient was treated with rhino rocket with 3 mL in bulb soaked in TXA. Following the procedure the patient was re-examined and the bleeding was well controlled. The patient tolerated the procedure well. The procedure was performed by myself ED Course/Re-evaluation: Vital signs reviewed and stable upon arrival. No signs of hypertension. Rhino rocket soaked with TXA placed. Observe for 3 hr without resolution of bleeding. Will refer to ENT for packing removal and further evaluation. This patient was seen under the supervision of my secondary supervising physician. I evaluated care for this patient independently. Discussed this patient with Dr. Garay. Differential Diagnosis: Differential diagnosis includes but is not limited to anterior epistaxis, posterior epistaxis, coagulopathy, nasal mucosa dryness, digital manipulation, malignancy, hypertension. - Data Points Medications Given: Discontinued Medications Tranexamic Acid (Cyklokapron) 500 mg TP EDNOW ONE Stop: 05/30/18 20:18 Last Admin: 05/30/18 20:21 Dose: Not Given Departure - Departure Disposition: Home, Routine, Self-Care Clinical Impression: Acute anterior epistaxis Condition: Good Instructions: Nosebleed (ED) Additional Instructions: Please avoid picking your nose or blowing nose. Leave packing in place until seen by ENT in the next 2-3 days. Called the office tomorrow for an appointment in the next 2-3 days. Follow-Up: Please follow-up as noted above. Follow-up sooner if your condition worsens or if you develop any new problems. Call as soon as possible for an appointment. Be clear when you call for an appointment that this is an Emergency Department follow-up. Contact the Emergency Department if you have trouble arranging follow-up care. Our referrals are not based on your insurance network. When time allows, contact your insurance carrier to verify the referral physician is in your plan. If not, get a referral for an in-networking engineer. Referrals: Renee Borja MD [Primary Care Provider] - As per Instructions Richard Mejia MD [Medical Doctor] - As per Instructions
[2018-05-30] MEDS ORDERED: TRANEXAMIC ACID 1,000 MG/10 ML VIAL TP ONE (20:17)
[2018-05-30 21:15] VITALS: BP 160/88
== END 2018-05-30 21:47 | disposition home or self-care (01) ==
PROC: 2Y41X5Z Packing of Nasal Region using Packing Material (ICD-10-PCS; principal; 2018-05-30)
DX: R04.0 Epistaxis (principal); I48.91 Unspecified atrial fibrillation; G70.00 Myasthenia gravis without (acute) exacerbation

== ENCOUNTER → 2018-10-09 | Outpatient (CLI) | payer OTHER | LOC: CIMAGING 14:13 | PROVIDERS: ATTEND Neurological Surgery | DX: Z09 Encounter for follow-up examination after completed treatment for conditions other than malignant neoplasm (principal); Z98.1 Arthrodesis status | CPT/HCPCS: 72100-PO ==

== ENCOUNTER 2018-11-27 12:00 | Emergency (ER) | payer OTHER ==
[2018-11-27] MEDS ORDERED: PYRIDOSTIGMINE BROMIDE 60 MG TAB PO ONE (13:10)
[2018-11-27] MEDS ORDERED: NS 1,000 ML IV ONE (13:11)
--- NOTE | 2018-11-27 13:13 | EDPHY ---
H & P Stated Complaint: sent from [facility] for low bp and dyspnea; poss myasthenia gravis flare Time Seen by Provider: 11/27/18 12:58 HPI/ROS: CHIEF COMPLAINT: Generalized fatigue, low blood pressure at the cancer center HISTORY OF PRESENT ILLNESS: The patient is a 63-year-old female with a history of myasthenia gravis as well as asthma who was sent from the [facility] where she was receiving a Soliris injection which she has received weekly for the last 4 weeks. While she was there she complained of weakness and feeling like she could not take a full breath. On their measurement her blood pressure was 90 systolic they were concerned for myasthenic crisis and sent her here to the emergency department. She does admit that she has not taking her Mestinon since yesterday because she does not feel like it helps her that much. She is supposed to take 30 mg every 3 hr. Here her blood pressure has been normal on multiple measurements. She denies recent fevers or illness. No nausea vomiting or GI symptoms. Her primary is Dr. Torres and her oncologist is Dr. Carlson. Her neurologist is in [place]. No focal deficits. She has been saturating in the mid 90s on room air. Severity: Moderate Modifying factors: None REVIEW OF SYSTEMS: Constitutional: denies: chills, fever, recent illness, recent injury EENTM: denies: blurred vision, double vision, nose congestion Respiratory: denies: cough, shortness of breath Cardiac: denies: chest pain, irregular heart rate, lightheadedness, palpitations Gastrointestinal/Abdominal: denies: abdominal pain, diarrhea, nausea, vomiting, blood streaked stools Genitourinary: denies: dysuria, frequency, hematuria, pain Musculoskeletal: See HPI Skin: denies: lesions, rash, jaundice, bruising Neurological: denies: headache, numbness, paresthesia, tingling, dizziness, weakness Hematologic/Lymphatic: denies: blood clots, easy bleeding, easy bruising Immunologic/allergic: denies: HIV/AIDS, transplant 10 systems reviewed and negative except as noted EXAM: GENERAL: Fatigued but no acute distress. HEAD: Atraumatic, normocephalic. EYES: Pupils equal round and reactive to light, extraocular movements intact, sclera anicteric, conjunctiva are normal. ENT: TMs normal, nares patent, oropharynx clear without exudates. Moist mucous membranes. NECK: Normal range of motion, supple without lymphadenopathy or JVD. LUNGS: Breath sounds clear to auscultation bilaterally and equal. No wheezes rales or rhonchi. HEART: Regular rate and rhythm without murmurs, rubs or gallops. ABDOMEN: Soft, nontender, normoactive bowel sounds. No guarding, no rebound. No masses appreciated. BACK: No CVA tenderness, no spinal tenderness, step-offs or deformities EXTREMITIES: Normal range of motion, no pitting or edema. No clubbing or cyanosis. NEUROLOGICAL: Cranial nerves II through XII grossly intact. Normal speech, normal gait. 4/5 strength diffusely, normal movement in all extremities, normal sensation, normal reflexes PSYCH: Normal mood, normal affect. SKIN: Warm, dry, normal turgor, no visible rashes or lesions. Source: Patient Exam Limitations: No limitations - Personal History Current Tetanus/Diphtheria Vaccine: Yes Current Tetanus Diphtheria and Acellular Pertussis (TDAP): Yes Tetanus Vaccine Date: 2008 - Medical/Surgical History Hx Asthma: Yes Hx Chronic Respiratory Disease: No Hx Diabetes: No Hx Cardiac Disease: No Hx Renal Disease: No Hx Cirrhosis: No Hx Alcoholism: No Hx HIV/AIDS: No Hx Splenectomy or Spleen Trauma: No Other PMH: Myasthenia Gravis, THYMEctomy, Hysterectomy, L knee, tonsilectomy, single episode of AFib - Family History Significant Family History: No pertinent family hx - Social History Smoking Status: Never smoked Alcohol Use: Sober Drug Use: None Constitutional: Initial Vital Signs Temperature (C) 36.6 C 11/27/18 12:03 Heart Rate 76 11/27/18 12:03 Respiratory Rate 20 11/27/18 12:03 Blood Pressure 127/84 H 11/27/18 12:03 O2 Sat (%) 95 11/27/18 12:03 O2 Delivery Mode Room Air Allergies/Adverse Reactions: acetaminophen Allergy (Intermediate, Verified 05/30/18 19:10) Hives Home Medications: Medication Instructions Recorded Ergocalciferol [Vitamin D2 (*)] 50,000 unit PO Q30D 08/16/15 Mometasone/Formoterol [Dulera 200 1 puffs IH DAILY 08/16/15 Mcg/5 Mcg Inhaler] Pantoprazole Sodium [Protonix 40mg 40 mg PO DAILY 08/16/15 (*)] Sertraline HCl [Zoloft 100mg (*)] 100 mg PO DAILY 08/16/15 azaTHIOprine [AZATHIOPRINE] 100 mg PO DAILY 08/16/15 Albuterol [Proventil Inhaler HFA 1 - 2 puffs IH Q4H PRN 05/08/16 (*)] Gabapentin [Neurontin 300 MG (*)] 300 mg PO TID 05/08/16 Pyridostigmine [place]ston [Mestinon 15 - 60 mg PO Q3-4PRN PRN 09/16/16 60mg (*)] Budesonide/Formoterol 80/4.5 2 puffs IH BID #0 mdi 10/09/16 [Symbicort 80-4.5 Mcg Inhaler] Digoxin [Lanoxin 125 mcg (RX)] 125 mcg PO DAILY AT 10AM #30 tab 10/09/16 Polyethylene Glycol 3350 [Miralax 17 gm PO TID #0 pkt 10/09/16 17 gm (*)] Sennosides/Docusate Sodium 1 - 2 tab PO BID #0 tab 10/09/16 [Senokot-S] morphINE SR [Ms Contin/Oramorph 15 15 mg PO BID #0 tab 10/09/16 mg (*)] oxyCODONE IR [Oxycodone Ir (*)] 5 mg PO Q3HRS PRN #0 tab 10/09/16 Medical Decision Making - Diagnostics EKG Interpretation: An EKG obtained and was read and documented in trace view. Please see trace view for full reading and report. Sinus rhythm, nonspecific T-wave inversions unchanged from previous Imaging Results: Imaging Impressions Chest X-Ray 11/27/18 13:12 Impression: Suspect airways disease with left basilar atelectasis. No definite pneumonia. Imaging: Discussed imaging studies w/ coding technician Radiologist ED Course/Re-evaluation: Patient's lab work and x-ray imaging are reassuring. Her vital signs have remained very stable here. Her sats in the high 90's. Her blood pressure here is been 130 or more systolic over 90. She is feeling much better after taking a dose of her Mestinon. She will continue to take this faithfully at home. I did offer her admission but she declines. She states that she will return if her symptoms worsened again. She will also make an appointment to see her neurologist in [place]. Differential Diagnosis: Partial list of the Differential diagnosis considered include but were not limited to; myasthenic crisis, pneumonia, sepsis, bronchitis and although unlikely based on the history and physical exam, I also considered ; crisis, sepsis, PE, acute coronary disease. - Data Points Laboratory Results: Laboratory Results 11/27/18 13:40 11/27/18 13:40 11/27/18 11/27/18 11/27/18 13:57 13:40 13:40 WBC 8.94 10^3/uL 10^3/uL (3.80-9.50) RBC 5.12 10^6/uL 10^6/uL (4.18-5.33) Hgb 14.2 g/dL g/dL (12.6-16.3) Hct 42.7 % % (38.0-47.0) MCV 83.4 fL fL (81.5-99.8) MCH 27.7 pg L pg (27.9-34.1) MCHC 33.3 g/dL g/dL (32.4-36.7) RDW 14.4 % % (11.5-15.2) Plt Count 226 10^3/uL 10^3/uL (150-400) MPV 11.9 fL H fL (8.7-11.7) Neut % (Auto) 68.4 % % (39.3-74.2) Lymph % (Auto) 19.8 % % (15.0-45.0) Runnels % (Auto) 8.4 % % (4.5-13.0) Eos % (Auto) 2.2 % % (0.6-7.6) Baso % (Auto) 0.8 % % (0.3-1.7) Nucleat RBC Rel Count 0.0 % % (0.0-0.2) Absolute Neuts (auto) 6.11 10^3/uL 10^3/uL (1.70-6.50) Absolute Lymphs (auto) 1.77 10^3/uL 10^3/uL (1.00-3.00) Absolute Monos (auto) 0.75 10^3/uL 10^3/uL (0.30-0.80) Absolute Eos (auto) 0.20 10^3/uL 10^3/uL (0.03-0.40) Absolute Basos (auto) 0.07 10^3/uL 10^3/uL (0.02-0.10) Absolute Nucleated RBC 0.00 10^3/uL 10^3/uL (0-0.01) Immature Gran % 0.4 % % (0.0-1.1) Immature Gran # 0.04 10^3/uL 10^3/uL (0.00-0.10) PT 12.6 SEC SEC (12.0-15.0) INR 0.98 (0.83-1.16) APTT 33.2 SEC SEC (23.0-38.0) VBG Lactic Acid Sodium Potassium Chloride Carbon Dioxide Anion Gap BUN Creatinine Estimated GFR Glucose Calcium Total Bilirubin POC Troponin I 0.00 ng/mL ng/mL (0.00-0.08) 11/27/18 11/27/18 13:40 13:12 WBC RBC Hgb Hct MCV MCH MCHC RDW Plt Count MPV Neut % (Auto) Lymph % (Auto) Runnels % (Auto) Eos % (Auto) Baso % (Auto) Nucleat RBC Rel Count Absolute Neuts (auto) Absolute Lymphs (auto) Absolute Monos (auto) Absolute Eos (auto) Absolute Basos (auto) Absolute Nucleated RBC Immature Gran % Immature Gran # PT INR APTT VBG Lactic Acid 1.8 mmol/L mmol/L (0.7-2.1) Sodium 138 mEq/L mEq/L (135-145) Potassium 3.9 mEq/L mEq/L (3.5-5.2) Chloride 107 mEq/L mEq/L (97-110) Carbon Dioxide 22 mEq/l mEq/l (22-31) Anion Gap 9 mEq/L mEq/L (6-14) BUN 15 mg/dL mg/dL (7-23) Creatinine 0.7 mg/dL mg/dL (0.6-1.0) Estimated GFR > 60 Glucose 128 mg/dL H mg/dL (70-100) Calcium 8.9 mg/dL mg/dL (8.5-10.4) Total Bilirubin 0.3 mg/dL mg/dL (0.1-1.4) POC Troponin I Medications Given: Discontinued Medications Sodium Chloride (Ns) 1,000 mls @ 0 mls/hr IV EDNOW ONE; Wide Open PRN Reason: Protocol Stop: 11/27/18 13:12 Last Admin: 11/27/18 13:58 Dose: 1,000 mls Pyridostigmine Aston (Mestinon) 30 mg PO EDNOW ONE Stop: 11/27/18 13:11 Last Admin: 11/27/18 13:56 Dose: 30 mg Point of Care Test Results: Chemistry 11/27/18 13:57 POC Troponin I 0.00 ng/mL ng/mL (0.00-0.08) Departure - Departure Disposition: Home, Routine, Self-Care Clinical Impression: Myasthenia gravis Condition: Fair Instructions: Myasthenia Gravis (ED) Referrals: NONE *PRIMARY CARE P,. [Primary Care Provider] - As per Instructions Renee Borja MD [Medical Doctor] - As per Instructions
--- NOTE | 2018-11-27 14:07 | CPEKG ---
Test Reason : OPEN Blood Pressure : / mmHG Vent. Rate : 074 BPM Atrial Rate : 075 BPM P-R Int : 183 ms QRS Dur : 099 ms QT Int : 417 ms P-R-T Axes : 047 010 031 degrees QTc Int : 463 ms Sinus rhythm Nonspecific ST depression, anterior leads Unchanged from previous Confirmed by Anju Vargas ([id number]) on 11/27/2018 2:06:31 PM Referred By: ANJU VARGAS Confirmed By:Anju Vargas
[2018-11-27 14:13] LABS: PLATELET COUNT 226 10^3/uL (150-400)
[2018-11-27 14:26] LABS: INR 0.98 (0.83-1.16); PROTIME(PATIENT) 12.6 SEC (12.0-15.0)
[2018-11-27 15:04] VITALS: BP 125/61
== END 2018-11-27 15:05 | disposition home or self-care (01) ==
DX: G70.00 Myasthenia gravis without (acute) exacerbation (principal); J45.909 Unspecified asthma, uncomplicated; E86.9 Volume depletion, unspecified
CPT/HCPCS: 84484-ER

== ENCOUNTER 2018-12-11 10:51 | Emergency (ER) | payer OTHER ==
[2018-12-11 11:10] VITALS: BP 168/87
--- NOTE | 2018-12-11 12:01 | EDPHY ---
H & P Time Seen by Provider: 12/11/18 11:10 HPI/ROS: CHIEF COMPLAINT: Epistaxis History by patient HISTORY OF PRESENT ILLNESS: 63-year-old woman with my senior gravis presents complaining of epistaxis which has been ongoing all morning. She denies any lightheaded or dizziness. She says she use Afrin spray at home and placed nasal clamps on but it continued to bleed prompting her to seek medical attention. She had a similar episode about a year ago which required cautery and packing. She denies any specific trauma to the nose. She is currently on prednisone but not blood thinners or aspirin. REVIEW OF SYSTEMS: As in HPI, and all other systems reviewed and are negative Smoking Status: Never smoked Physical Exam: General Appearance: Alert and no distress. Head: normocephalic, atraumatic, no sinus tenderness Eyes: Pupils equal and round no injection. OP: mucus membranes moist, no tonsillar enlargement, no bleeding or exudates Nose: Right naris possible mucus, left nares blood in the nares but no active bleeding or visible lesion Respiratory: Chest is nontender, lungs are clear to auscultation. No wheezes, rales, rhonchi Cardiac: regular rate and rhythm. S1, S2, no murmurs, gallops, rubs appreciated. Gastrointestinal: Abdomen is soft and nontender, no masses, bowel sounds normal. Musculoskeletal: Neck is supple and nontender. Extremities have full range of motion and are nontender. Skin: No rashes or lesions. Constitutional: Initial Vital Signs Temperature (C) 36.6 C 12/11/18 11:06 Heart Rate 70 12/11/18 11:06 Respiratory Rate 16 12/11/18 11:06 Blood Pressure 168/87 H 12/11/18 11:06 O2 Sat (%) 94 12/11/18 11:06 O2 Delivery Mode Room Air Allergies/Adverse Reactions: acetaminophen Allergy (Intermediate, Verified 12/11/18 11:11) Hives Home Medications: Medication Instructions Recorded Ergocalciferol [Vitamin D2 (*)] 50,000 unit PO Q30D 08/16/15 Mometasone/Formoterol [Dulera 200 1 puffs IH DAILY 08/16/15 Mcg/5 Mcg Inhaler] Pantoprazole Sodium [Protonix 40mg 40 mg PO DAILY 08/16/15 (*)] Sertraline HCl [Zoloft 100mg (*)] 100 mg PO DAILY 08/16/15 azaTHIOprine [AZATHIOPRINE] 100 mg PO DAILY 08/16/15 Albuterol [Proventil Inhaler HFA 1 - 2 puffs IH Q4H PRN 05/08/16 (*)] Gabapentin [Neurontin 300 MG (*)] 300 mg PO TID 05/08/16 Pyridostigmine [place] [Mestinon 15 - 60 mg PO Q3-4PRN PRN 09/16/16 60mg (*)] Budesonide/Formoterol 80/4.5 2 puffs IH BID #0 mdi 10/09/16 [Symbicort 80-4.5 Mcg Inhaler] Digoxin [Lanoxin 125 mcg (RX)] 125 mcg PO DAILY AT 10AM #30 tab 10/09/16 Polyethylene Glycol 3350 [Miralax 17 gm PO TID #0 pkt 10/09/16 17 gm (*)] Sennosides/Docusate Sodium 1 - 2 tab PO BID #0 tab 10/09/16 [Senokot-S] morphINE SR [Ms Contin/Oramorph 15 15 mg PO BID #0 tab 10/09/16 mg (*)] oxyCODONE IR [Oxycodone Ir (*)] 5 mg PO Q3HRS PRN #0 tab 10/09/16 MDM/Departure - [facility] ED Course/Re-evaluation: 63-year-old woman presents with epistaxis which is controlled. Nasal clots were removed patient was observed in the emergency department without any further bleeding. She was given reassurance we discussed return precautions and home care. - Depart Disposition: Home, Routine, Self-Care Clinical Impression: Epistaxis Condition: Good Instructions: Nosebleed (ED) Additional Instructions: You were seen by Dr. Rosa Elena Chavis today. Resist the urge to blow your nose or put anything in her nose, including her finger. If your nose bleeds again, again please use your Afrin spray and nasal clips. Return if you are unable to control bleeding. Return for any worsening or new concerns. Referrals: Renee Borja MD [Primary Care Provider] - As per Instructions
== END 2018-12-11 12:10 | disposition home or self-care (01) ==
LOC: CED 10:51
DX: R04.0 Epistaxis (principal); Z79.899 Other long term (current) drug therapy
CPT/HCPCS: 99283-ER